=== PATIENT | female | born 1970 | race Caucasian/White ===

== ENCOUNTER 2018-09-20 16:46 | Inpatient (IN) | payer OTHER | END 2018-09-23 14:40 | disposition other institution (70) | LOC: YASAS 16:46 → Y3N 22:46 ==

== ENCOUNTER 2019-01-03 11:02 | Inpatient (IN) | payer OTHER ==
[2019-01-03 11:53] VITALS: BMI 31.8
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
--- NOTE | 2019-01-03 14:03 | PN ---
Teaching Attending Note Name of Resident: Ge Rm ATTENDING PHYSICIAN STATEMENT I saw and evaluated the patient. I reviewed the resident's note and discussed the case with the resident. I agree with the resident's findings and plan as documented. SUBJECTIVE: 48 yo with diabetes, HTN, h/o CVA, no residual deficits, HIV pos ( no meds), here for alcohol and heroin detox. Also uses MJ and cocaine. alcohol 2-4 pints/day heroin $40/day cocaine OBJECTIVE: Vital Signs - 24 hr 01/03/19 11:38 Temperature 98.0 F Pulse Rate 94 H Respiratory 20 Rate Blood Pressure 150/87 tremulous ASSESSMENT AND PLAN: Alcohol and heroin detox protocol
[2019-01-03] MEDS ORDERED: cloNIDine HCL 0.1 MG TABLET PO PRN (14:18)
[2019-01-03] MEDS ORDERED: chlordiazePOXIDE HCL 25 MG CAPSULE PO PRN (14:18)
[2019-01-03] MEDS ORDERED: BISMUTH SUBSALICYLATE 262 MG/15 ML BTL PO PRN (14:18)
[2019-01-03] MEDS ORDERED: MENTHOL/PHENOL 1 EACH UD MM PRN (14:18)
[2019-01-03] MEDS ORDERED: MAG HYDROX/AL HYDROX/SIMETH 30 ML UNIT-DOSE CUP PO PRN (14:18)
[2019-01-03] MEDS ORDERED: ACETAMINOPHEN 325 MG TABLET (FP) PO PRN (14:18)
[2019-01-03] MEDS ORDERED: MAGNESIUM CITRATE 300 ML BOTTLE PO PRN (14:18)
[2019-01-03] MEDS ORDERED: MAGNESIUM HYDROX 2400MG/30ML ORAL SUSPENSION 30 ML CUP PO PRN (14:18)
[2019-01-03] MEDS ORDERED: METHADONE HCL 10 MG TABLET (FOR DETOX USE ONLY) PO ONE (15:18)
[2019-01-03] MEDS: NICOTINE 21 MG/24 HOURS TOPICAL PATCH TD SCH (16:01)
[2019-01-03] MEDS: chlordiazePOXIDE HCL 25 MG CAPSULE PO SCH ×2 (16:44→22:33)
[2019-01-03] MEDS: ACETAMINOPHEN 325 MG TABLET (FP) PO PRN (16:44)
[2019-01-03 18:15] LABS: ALBUMIN 3.8 g/dl (3.4-5.0); BILIRUBIN,TOTAL 0.3 mg/dL (0.2-1); BLOOD UREA NITROGEN 16.6 mg/dL (7-18); CALCIUM 9.6 mg/dL (8.5-10.1); CREATININE 0.8 mg/dL (0.55-1.3); POTASSIUM 3.7 mmol/L (3.5-5.1); TOT PROT 7.4 g/dl (6.4-8.2)
[2019-01-03 18:19] LABS: HEMATOCRIT 35.5 % (32.4-45.2); HEMOGLOBIN 11.8 GM/dL (10.7-15.3); MCH 31.9 pg (25.7-33.7); MCHC 33.4 g/dl (32.0-36.0); MEAN CELL VOLUME 95.6 fl (80-96); MEAN PLT VOLUME 7.7 fl (7.5-11.1); PLATELET COUNT 364 K/MM3 (134-434); RBC 3.71 M/mm3 (3.60-5.2); RDW 15.5 % (11.6-15.6); WHITE BLOOD COUNT 8.1 K/mm3 (4.0-10.0)
[2019-01-03] MEDS: hydrOXYzine PAMOATE 25 MG CAPSULE (FP) PO PRN (21:55)
[2019-01-03] MEDS: THIAMINE HCL 100 MG TABLET (FP) PO SCH (21:56)
[2019-01-03] MEDS: MELATONIN 5 MG TABLETS PO PRN (21:56)
--- NOTE | 2019-01-03 23:31 | PN ---
BHS Progress Note Note: c/o itching in percy-anal and thigh area. Denies burning or pain w/ urination. Hx: DM. Whitish vaginal discharge. No lesions/increased erythema in labial area. Plan: Monistat cream to percy-anal area. Fluconazole tab in am. Vistaril, prn itch. Aveeno soap. BGM Now and BIDAC.
[2019-01-03] MEDS: COLLOIDAL OATMEAL 1 BAR EACH TP PRN (23:41)
[2019-01-04] MEDS: chlordiazePOXIDE HCL 25 MG CAPSULE PO SCH ×4 (05:56→22:22)
[2019-01-04] MEDS: IBUPROFEN 400 MG TABLET (FP) PO PRN ×2 (05:59→16:59)
[2019-01-04] MEDS: METHOCARBAMOL 500 MG TABLET PO PRN ×2 (07:36→16:58)
[2019-01-04] MEDS: hydrOXYzine PAMOATE 25 MG CAPSULE (FP) PO PRN (07:36)
--- NOTE | 2019-01-04 09:28 | PN ---
[facility] CIWA - CIWA Score Nausea/Vomitin-Mild Nausea/No Vomiting Muscle Tremors: 3 Anxiety: 3 Agitation: 2 Paroxysmal Sweats: 2 Orientation: 0-Oriented Tacttile Disturbances: 0-None Auditory Disturbances: 0-None Visual Disturbances: 0-None Headache: 1-Very Mild CIWA-Ar Total Score: 12 S Progress Note (SOAP) Subjective: report hiv since 2004 last ART "4 months" ago last viral load 09/2018 "undetectable" patient requests to start ART while in detox discuss further diagnostic blood testings were required for ART patient verbalize understanding methadone dosage in the process of verification Objective: 01/04/19 09:32 Vital Signs Temperature 97.7 F 01/04/19 09:21 Pulse Rate 67 01/04/19 09:21 Respiratory Rate 18 01/04/19 09:21 Blood Pressure 132/75 01/04/19 09:21 O2 Sat by Pulse Oximetry (%) Laboratory Last Values WBC 8.1 K/mm3 (4.0-10.0) 01/03/19 15:15 RBC 3.71 M/mm3 (3.60-5.2) 01/03/19 15:15 Hgb 11.8 GM/dL (10.7-15.3) 01/03/19 15:15 Hct 35.5 % (32.4-45.2) 01/03/19 15:15 MCV 95.6 fl (80-96) 01/03/19 15:15 MCH 31.9 pg (25.7-33.7) 01/03/19 15:15 MCHC 33.4 g/dl (32.0-36.0) 01/03/19 15:15 RDW 15.5 % (11.6-15.6) D 01/03/19 15:15 Plt Count 364 K/MM3 (134-434) D 01/03/19 15:15 MPV 7.7 fl (7.5-11.1) 01/03/19 15:15 Sodium 141 mmol/L (136-145) 01/03/19 15:15 Potassium 3.7 mmol/L (3.5-5.1) 01/03/19 15:15 Chloride 107 mmol/L (98-107) 01/03/19 15:15 Carbon Dioxide 26 mmol/L (21-32) 01/03/19 15:15 Anion Gap 9 MMOL/L (8-16) 01/03/19 15:15 BUN 16.6 mg/dL (7-18) 01/03/19 15:15 Creatinine 0.8 mg/dL (0.55-1.3) 01/03/19 15:15 Est GFR (CKD-EPI)AfAm 100.33 01/03/19 15:15 Est GFR (CKD-EPI)NonAf 86.57 01/03/19 15:15 POC Glucometer 113 UNITS (80-120) 01/04/19 07:16 Random Glucose 104 mg/dL (74-106) 01/03/19 15:15 Calcium 9.6 mg/dL (8.5-10.1) 01/03/19 15:15 Total Bilirubin 0.3 mg/dL (0.2-1) 01/03/19 15:15 AST 10 U/L (15-37) L 01/03/19 15:15 ALT 12 U/L (13-61) L 01/03/19 15:15 Alkaline Phosphatase 63 U/L (45-117) 01/03/19 15:15 Total Protein 7.4 g/dl (6.4-8.2) 01/03/19 15:15 Albumin 3.8 g/dl (3.4-5.0) 01/03/19 15:15 RPR Titer Nonreactive (NONREACTIVE) 01/03/19 15:15 lab noted Assessment: 01/04/19 09:33 alcohol withdrawal sx Plan: continue librium detox regimen
[2019-01-04] MEDS ORDERED: METHADONE HCL 5 MG TABLET (FOR DETOX USE ONLY) PO ONE (10:00)
[2019-01-04] MEDS ORDERED: FLUCONAZOLE 150 MG TABLET PO ONE (10:00)
[2019-01-04] MEDS: metFORMIN HCL 500 MG TABLET (FP) PO SCH ×2 (10:14→22:22)
[2019-01-04] MEDS: LISINOPRIL 10 MG TABLET (FP) PO SCH ×2 (10:14→22:22)
[2019-01-04] MEDS: PRENATAL VITAMINS W/ FOLIC ACID TABLET (FP) PO SCH (10:14)
[2019-01-04] MEDS: NICOTINE 21 MG/24 HOURS TOPICAL PATCH TD SCH (10:15)
[2019-01-04] MEDS ORDERED: FLUCONAZOLE 50 MG TABLET PO ONE (10:50)
[2019-01-04] MEDS: MICONAZOLE NITRATE 14 GM/TUBE TUBE TP SCH ×2 (10:53→22:21)
--- NOTE | 2019-01-04 10:55 | PN ---
[facility] COWS - Scale Resting Pulse: 0= DC 80 or Below Sweatin= Chills/Flushing Restless Observation: 0= Sits Still Pupil Size: 0= Normal to Room Light Bone or Joint Aches: 1= Mild Discomfort Runny Nose/ Eye Tearin= Nasal Congestion GI Upset > 30mins: 1= Stomach Cramp Tremor Observation of Outstretched Hands: 1= Tremor [place], Not Seen Yawning Observation: 0= None Anxiety or Irritability: 1=Feels Anxious/Irritable Goose Flesh Skin: 0=Smooth Skin COWS Score: 6
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
[2019-01-04] MEDS: QUEtiapine FUMARATE 100 MG TABLET (FP) PO SCH (22:22)
[2019-01-04] MEDS: THIAMINE HCL 100 MG TABLET (FP) PO SCH (22:22)
[2019-01-04] MEDS ORDERED: ALBUTEROL SO4 8 GM HFA INHALER IH PRN (22:30)
--- NOTE | 2019-01-04 22:36 | PN ---
S Progress Note Note: Patient complains of shortness of breath Vital Signs Temperature 98 F 01/04/19 21:51 Pulse Rate 72 01/04/19 21:51 Respiratory Rate 16 01/04/19 21:51 Blood Pressure 111/75 01/04/19 21:51 O2 Sat by Pulse Oximetry (%) Action: Albuterol Sulfate inhaler 2 puff Q4H prn ordered
[2019-01-05] MEDS: chlordiazePOXIDE HCL 25 MG CAPSULE PO SCH ×4 (06:06→22:22)
[2019-01-05] MEDS: IBUPROFEN 400 MG TABLET (FP) PO PRN ×2 (06:07→17:10)
[2019-01-05] MEDS: METHOCARBAMOL 500 MG TABLET PO PRN ×3 (06:07→22:25)
[2019-01-05] MEDS: hydrOXYzine PAMOATE 25 MG CAPSULE (FP) PO PRN (06:08)
[2019-01-05] MEDS ORDERED: METHADONE HCL 10 MG TABLET (FOR DETOX USE ONLY) PO ONE (10:00)
[2019-01-05] MEDS: metFORMIN HCL 500 MG TABLET (FP) PO SCH ×2 (10:24→22:22)
[2019-01-05] MEDS: PRENATAL VITAMINS W/ FOLIC ACID TABLET (FP) PO SCH (10:24)
[2019-01-05] MEDS: MICONAZOLE NITRATE 14 GM/TUBE TUBE TP SCH ×2 (10:24→22:22)
[2019-01-05] MEDS: NICOTINE 21 MG/24 HOURS TOPICAL PATCH TD SCH (10:25)
[2019-01-05] MEDS: ACETAMINOPHEN 325 MG TABLET (FP) PO PRN (10:25)
[2019-01-05] MEDS: LISINOPRIL 10 MG TABLET (FP) PO SCH ×2 (10:29→22:22)
--- NOTE | 2019-01-05 14:09 | PN ---
S CIWA - CIWA Score Nausea/Vomitin-Mild Nausea/No Vomiting Muscle Tremors: 1-None Visible, but [place] Anxiety: 2 Agitation: 2 Paroxysmal Sweats: No Perspiration Orientation: 0-Oriented Tacttile Disturbances: 1-Very Mild Itch/Numbness Auditory Disturbances: 0-None Visual Disturbances: 0-None Headache: 1-Very Mild CIWA-Ar Total Score: 8 BHS Progress Note (SOAP) Subjective: alert,irritable,anxious,pain in the leg,interrupted sleep Objective: 01/05/19 14:08 Vital Signs Temperature 97.0 F L 01/05/19 13:56 Pulse Rate 83 01/05/19 13:56 Respiratory Rate 18 01/05/19 13:56 Blood Pressure 104/64 01/05/19 13:56 O2 Sat by Pulse Oximetry (%) Laboratory Last Values WBC 8.1 K/mm3 (4.0-10.0) 01/03/19 15:15 RBC 3.71 M/mm3 (3.60-5.2) 01/03/19 15:15 Hgb 11.8 GM/dL (10.7-15.3) 01/03/19 15:15 Hct 35.5 % (32.4-45.2) 01/03/19 15:15 MCV 95.6 fl (80-96) 01/03/19 15:15 MCH 31.9 pg (25.7-33.7) 01/03/19 15:15 MCHC 33.4 g/dl (32.0-36.0) 01/03/19 15:15 RDW 15.5 % (11.6-15.6) D 01/03/19 15:15 Plt Count 364 K/MM3 (134-434) D 01/03/19 15:15 MPV 7.7 fl (7.5-11.1) 01/03/19 15:15 Sodium 141 mmol/L (136-145) 01/03/19 15:15 Potassium 3.7 mmol/L (3.5-5.1) 01/03/19 15:15 Chloride 107 mmol/L (98-107) 01/03/19 15:15 Carbon Dioxide 26 mmol/L (21-32) 01/03/19 15:15 Anion Gap 9 MMOL/L (8-16) 01/03/19 15:15 BUN 16.6 mg/dL (7-18) 01/03/19 15:15 Creatinine 0.8 mg/dL (0.55-1.3) 01/03/19 15:15 Est GFR (CKD-EPI)AfAm 100.33 01/03/19 15:15 Est GFR (CKD-EPI)NonAf 86.57 01/03/19 15:15 POC Glucometer 140 UNITS (80-120) 01/05/19 06:11 Random Glucose 104 mg/dL (74-106) 01/03/19 15:15 Calcium 9.6 mg/dL (8.5-10.1) 01/03/19 15:15 Total Bilirubin 0.3 mg/dL (0.2-1) 01/03/19 15:15 AST 10 U/L (15-37) L 01/03/19 15:15 ALT 12 U/L (13-61) L 01/03/19 15:15 Alkaline Phosphatase 63 U/L (45-117) 01/03/19 15:15 Total Protein 7.4 g/dl (6.4-8.2) 01/03/19 15:15 Albumin 3.8 g/dl (3.4-5.0) 01/03/19 15:15 POC Urine HCG, Qual Negative 01/03/19 12:04 RPR Titer Nonreactive (NONREACTIVE) 01/03/19 15:15 Assessment: 01/05/19 14:08 withdrawal symptom Plan: continue detox librium regimen,bgm monitoring
--- NOTE | 2019-01-05 18:45 | PN ---
S Progress Note Note: c/o (L) leg pain at knee and thigh area and numbness in leg and foot.. States pain started a couple of weeks ago. Pain is sharp/throbbing and currently a "8" Ambulates w/ a cane. States used a walker at home. No further vaginal discharge and itch is resolved. O/A: (L) knee slight increased swelling and warmth compared to (R). No increased erythema. Negative Bri's; Pedal pusles +; Cap refil < 3 sec Ibuprofen 600 mg PO Q6H - standing for pain and inflammation. Ice to knee x 20 minutes Q2H, prn.
[2019-01-05] MEDS: IBUPROFEN 600 MG TABLET (FP) PO SCH (19:47)
[2019-01-05] MEDS: THIAMINE HCL 100 MG TABLET (FP) PO SCH (22:21)
[2019-01-05] MEDS: QUEtiapine FUMARATE 100 MG TABLET (FP) PO SCH (22:22)
[2019-01-06] MEDS ORDERED: chlordiazePOXIDE HCL 10 MG CAPSULE PO PRN
[2019-01-06] MEDS: IBUPROFEN 600 MG TABLET (FP) PO SCH ×3 (05:57→18:23)
[2019-01-06] MEDS: chlordiazePOXIDE HCL 10 MG CAPSULE PO SCH ×4 (05:57→22:28)
[2019-01-06] MEDS: METHOCARBAMOL 500 MG TABLET PO PRN ×2 (05:59→17:36)
[2019-01-06] MEDS ORDERED: METHADONE HCL 5 MG TABLET (FOR DETOX USE ONLY) PO ONE (06:00)
[2019-01-06] MEDS: PRENATAL VITAMINS W/ FOLIC ACID TABLET (FP) PO SCH (10:16)
[2019-01-06] MEDS: MICONAZOLE NITRATE 14 GM/TUBE TUBE TP SCH ×2 (10:16→22:33)
[2019-01-06] MEDS: LISINOPRIL 10 MG TABLET (FP) PO SCH ×2 (10:16→22:29)
[2019-01-06] MEDS: NICOTINE 21 MG/24 HOURS TOPICAL PATCH TD SCH (10:18)
[2019-01-06] MEDS: metFORMIN HCL 500 MG TABLET (FP) PO SCH ×2 (10:19→22:28)
--- NOTE | 2019-01-06 14:18 | PN ---
[facility] CIWA - CIWA Score Nausea/Vomitin-No Nausea/No Vomiting Muscle Tremors: 1-None Visible, but [place] Anxiety: 1-Mildly Anxious Agitation: 1-Slight > Activity Paroxysmal Sweats: 1-Minimal Palms Moist Orientation: 0-Oriented Tacttile Disturbances: 0-None Auditory Disturbances: 0-None Visual Disturbances: 0-None Headache: 0-None Present CIWA-Ar Total Score: 4 S Progress Note (SOAP) Subjective: doing well with librium detox regimen ambulating on hallway social with peers in day room last ART 4 months ago strong recommend the patient return to [place] for further testing for ART determination Objective: 01/06/19 14:17 Vital Signs Temperature 96.8 F L 01/06/19 13:12 Pulse Rate 85 01/06/19 13:12 Respiratory Rate 18 01/06/19 13:12 Blood Pressure 116/67 01/06/19 13:12 O2 Sat by Pulse Oximetry (%) Laboratory Last Values WBC 8.1 K/mm3 (4.0-10.0) 01/03/19 15:15 RBC 3.71 M/mm3 (3.60-5.2) 01/03/19 15:15 Hgb 11.8 GM/dL (10.7-15.3) 01/03/19 15:15 Hct 35.5 % (32.4-45.2) 01/03/19 15:15 MCV 95.6 fl (80-96) 01/03/19 15:15 MCH 31.9 pg (25.7-33.7) 01/03/19 15:15 MCHC 33.4 g/dl (32.0-36.0) 01/03/19 15:15 RDW 15.5 % (11.6-15.6) D 01/03/19 15:15 Plt Count 364 K/MM3 (134-434) D 01/03/19 15:15 MPV 7.7 fl (7.5-11.1) 01/03/19 15:15 Sodium 141 mmol/L (136-145) 01/03/19 15:15 Potassium 3.7 mmol/L (3.5-5.1) 01/03/19 15:15 Chloride 107 mmol/L (98-107) 01/03/19 15:15 Carbon Dioxide 26 mmol/L (21-32) 01/03/19 15:15 Anion Gap 9 MMOL/L (8-16) 01/03/19 15:15 BUN 16.6 mg/dL (7-18) 01/03/19 15:15 Creatinine 0.8 mg/dL (0.55-1.3) 01/03/19 15:15 Est GFR (CKD-EPI)AfAm 100.33 01/03/19 15:15 Est GFR (CKD-EPI)NonAf 86.57 01/03/19 15:15 POC Glucometer 120 UNITS (80-120) 01/06/19 05:54 Random Glucose 104 mg/dL (74-106) 01/03/19 15:15 Calcium 9.6 mg/dL (8.5-10.1) 01/03/19 15:15 Total Bilirubin 0.3 mg/dL (0.2-1) 01/03/19 15:15 AST 10 U/L (15-37) L 01/03/19 15:15 ALT 12 U/L (13-61) L 01/03/19 15:15 Alkaline Phosphatase 63 U/L (45-117) 01/03/19 15:15 Total Protein 7.4 g/dl (6.4-8.2) 01/03/19 15:15 Albumin 3.8 g/dl (3.4-5.0) 01/03/19 15:15 POC Urine HCG, Qual Negative 01/03/19 12:04 RPR Titer Nonreactive (NONREACTIVE) 01/03/19 15:15 lab noted Assessment: 01/06/19 14:17 alcohol withdrawal sx Plan: continue librium detox regimen
[2019-01-06] MEDS: COLLOIDAL OATMEAL 1 BAR EACH TP PRN (17:34)
[2019-01-06] MEDS: QUEtiapine FUMARATE 100 MG TABLET (FP) PO SCH (22:28)
[2019-01-06] MEDS: THIAMINE HCL 100 MG TABLET (FP) PO SCH (22:28)
[2019-01-06] MEDS: MELATONIN 5 MG TABLETS PO PRN (22:32)
[2019-01-06] MEDS: ACETAMINOPHEN 325 MG TABLET (FP) PO PRN (22:33)
[2019-01-07] MEDS ORDERED: chlordiazePOXIDE HCL 10 MG CAPSULE PO SCH (05:00)
[2019-01-07] MEDS: METHOCARBAMOL 500 MG TABLET PO PRN ×2 (05:42→12:57)
[2019-01-07] MEDS: IBUPROFEN 600 MG TABLET (FP) PO SCH (08:12)
[2019-01-07] MEDS: COLLOIDAL OATMEAL 1 BAR EACH TP PRN (09:10)
[2019-01-07] MEDS: MICONAZOLE NITRATE 14 GM/TUBE TUBE TP SCH (09:12)
[2019-01-07] MEDS: PRENATAL VITAMINS W/ FOLIC ACID TABLET (FP) PO SCH (09:13)
[2019-01-07] MEDS: LISINOPRIL 10 MG TABLET (FP) PO SCH (09:13)
[2019-01-07] MEDS: NICOTINE 21 MG/24 HOURS TOPICAL PATCH TD SCH (09:14)
[2019-01-07] MEDS: metFORMIN HCL 500 MG TABLET (FP) PO SCH (09:16)
[2019-01-07 09:27] VITALS: BP 112/72; PULSE 81; TEMP 98.7
[2019-01-07] MEDS: ACETAMINOPHEN 325 MG TABLET (FP) PO PRN (12:57)
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
[2019-01-08] MEDS ORDERED: chlordiazePOXIDE HCL 10 MG CAPSULE PO ONE (05:00)
== END 2019-01-07 14:50 | disposition home or self-care (01) | DRG 773 ==
LOC: YASAS 11:02 → Y3N 14:55
PROVIDERS: ADMIT Surgery; ATTEND Surgery
PROC: HZ2ZZZZ Detoxification Services for Substance Abuse Treatment (ICD-10-PCS; principal; 2019-01-03)
DX: F11.23 Opioid dependence with withdrawal (principal); F10.230 Alcohol dependence with withdrawal, uncomplicated; F14.20 Cocaine dependence, uncomplicated; F12.20 Cannabis dependence, uncomplicated; F17.210 Nicotine dependence, cigarettes, uncomplicated; F19.24 Other psychoactive substance dependence with psychoactive substance-induced mood disorder; F41.9 Anxiety disorder, unspecified; F31.9 Bipolar disorder, unspecified; I10 Essential (primary) hypertension; G47.00 Insomnia, unspecified; J45.909 Unspecified asthma, uncomplicated; E11.42 Type 2 diabetes mellitus with diabetic polyneuropathy; Z79.84 Long term (current) use of oral hypoglycemic drugs; E78.00 Pure hypercholesterolemia, unspecified; M79.605 Pain in left leg; R01.1 Cardiac murmur, unspecified; Z21 Asymptomatic human immunodeficiency virus [HIV] infection status; N89.8 Other specified noninflammatory disorders of vagina; Z86.73 Personal history of transient ischemic attack (TIA), and cerebral infarction without residual deficits; Z91.19 Patient's noncompliance with other medical treatment and regimen; Z91.011 Allergy to milk products; Z86.19 Personal history of other infectious and parasitic diseases
CPT/HCPCS: 36415; 80053; 81025; 82962; 85027; 86593; J0735

== ENCOUNTER 2019-04-12 15:41 | Inpatient (IN) | payer OTHER ==
[2019-04-12 17:37] VITALS: BMI 34.8
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
[2019-04-12] MEDS ORDERED: hydrOXYzine PAMOATE 25 MG CAPSULE (FP) PO PRN (19:44)
[2019-04-12] MEDS ORDERED: chlordiazePOXIDE HCL 25 MG CAPSULE PO ONE (19:44)
[2019-04-12] MEDS ORDERED: BISMUTH SUBSALICYLATE 524 MG/30 ML UD PO PRN (19:44)
[2019-04-12] MEDS ORDERED: MAGNESIUM CITRATE 300 ML BOTTLE PO PRN (19:44)
[2019-04-12] MEDS ORDERED: NICOTINE POLACRILEX 2 MG GUM BUC PRN (19:44)
[2019-04-12] MEDS ORDERED: ACETAMINOPHEN 325 MG TABLET (FP) PO PRN (19:44)
[2019-04-12] MEDS ORDERED: MAGNESIUM HYDROX 2400MG/30ML ORAL SUSPENSION 30 ML CUP PO PRN (19:44)
[2019-04-12] MEDS ORDERED: guaiFENesin 200 MG/10 ML 10 ML UNIT-DOSE CUPS PO PRN (19:44)
[2019-04-12] MEDS ORDERED: chlordiazePOXIDE HCL 25 MG CAPSULE PO PRN (19:44)
[2019-04-12] MEDS ORDERED: MAG HYDROX/AL HYDROX/SIMETH 30 ML UNIT-DOSE CUP PO PRN (19:44)
[2019-04-12] MEDS ORDERED: MENTHOL/PHENOL 1 EACH UD MM PRN (19:44)
[2019-04-12] MEDS ORDERED: ALBUTEROL SO4 8 GM HFA INHALER IH PRN (19:46)
[2019-04-12] MEDS: ONDANSETRON *ODT* 4 MG TABLET SL PRN (20:40)
[2019-04-12] MEDS: ACETAMINOPHEN 325 MG TABLET (FP) PO PRN (20:57)
[2019-04-12] MEDS: LISINOPRIL 10 MG TABLET (FP) PO SCH (20:59)
[2019-04-12] MEDS: THIAMINE HCL 100 MG TABLET (FP) PO SCH (20:59)
[2019-04-12] MEDS: BUPRENORPHINE/NALOXONE 8 MG/2 MG FILM PACKET SL SCH (21:00)
[2019-04-12] MEDS ORDERED: QUEtiapine FUMARATE 100 MG TABLET (FP) PO SCH (22:00)
[2019-04-12] MEDS: IBUPROFEN 400 MG TABLET (FP) PO PRN (22:22)
[2019-04-12] MEDS: MELATONIN 5 MG TABLETS PO PRN (22:23)
[2019-04-12] MEDS: chlordiazePOXIDE HCL 25 MG CAPSULE PO SCH (23:15)
[2019-04-13] MEDS: METHOCARBAMOL 500 MG TABLET PO PRN ×2 (03:21→14:58)
[2019-04-13] MEDS: chlordiazePOXIDE HCL 25 MG CAPSULE PO SCH ×4 (05:56→22:23)
[2019-04-13] MEDS: BUPRENORPHINE/NALOXONE 8 MG/2 MG FILM PACKET SL SCH (10:04)
[2019-04-13] MEDS: ELVITEG/COB/EMTRI/TENOF (GENVOYA) TABLET (NF) PO SCH (10:04)
[2019-04-13] MEDS: LISINOPRIL 10 MG TABLET (FP) PO SCH ×2 (10:04→22:22)
[2019-04-13] MEDS: PRENATAL VITAMINS W/ FOLIC ACID TABLET (FP) PO SCH (10:04)
[2019-04-13] MEDS: NICOTINE 21 MG/24 HOURS TOPICAL PATCH TD SCH (10:05)
[2019-04-13] MEDS: IBUPROFEN 400 MG TABLET (FP) PO PRN ×2 (10:06→17:31)
[2019-04-13 10:24] LABS: HEMATOCRIT 36.7 % (32.4-45.2); HEMOGLOBIN 12.5 GM/dL (10.7-15.3); MCH 33.4 pg (25.7-33.7); MEAN CELL VOLUME 98.4 fl (80-96); MEAN PLT VOLUME 7.6 fl (7.5-11.1); PLATELET COUNT 350 K/MM3 (134-434); RBC 3.73 M/mm3 (3.60-5.2); RDW 14.6 % (11.6-15.6)
[2019-04-13 11:01] LABS: BILIRUBIN,TOTAL 0.2 mg/dL (0.2-1); BLOOD UREA NITROGEN 22.7 mg/dL (7-18); CALCIUM 9.5 mg/dL (8.5-10.1); CREATININE 1.7 mg/dL (0.55-1.3); POTASSIUM 3.5 mmol/L (3.5-5.1)
[2019-04-13] MEDS: METHYL SALICYLATE/MENTHOL OINT 30 GM TUBE TP PRN (11:41)
[2019-04-13] MEDS ORDERED: TRIMETHOBENZAMIDE HCL 200MG/2ML INJ IM ONE (11:45)
--- NOTE | 2019-04-13 13:38 | PN ---
S CIWA - CIWA Score Nausea/Vomitin-Mild Nausea/No Vomiting Muscle Tremors: 4-Moderate,w/Arms Extend Anxiety: 3 Agitation: 2 Paroxysmal Sweats: 2 Orientation: 0-Oriented Tacttile Disturbances: 0-None Auditory Disturbances: 0-None Visual Disturbances: 0-None Headache: 1-Very Mild CIWA-Ar Total Score: 13 S Progress Note (SOAP) Subjective: 49 years old female admitted on 04/12/19 for alcohol withdrawal sx management treating with librium detox regimen received suboxone 8-2mg po today as per admission physician suboxone maintenance dose doing ok today discuss aftercare with counselor but prefers to stay in bed today Objective: 04/13/19 13:40 Vital Signs Temperature 96.2 F L 04/13/19 13:22 Pulse Rate 83 04/13/19 13:22 Respiratory Rate 18 04/13/19 13:22 Blood Pressure 105/68 04/13/19 13:22 O2 Sat by Pulse Oximetry (%) Laboratory Last Values WBC 13.0 K/mm3 (4.0-10.0) H 04/13/19 07:40 RBC 3.73 M/mm3 (3.60-5.2) 04/13/19 07:40 Hgb 12.5 GM/dL (10.7-15.3) 04/13/19 07:40 Hct 36.7 % (32.4-45.2) 04/13/19 07:40 MCV 98.4 fl (80-96) H 04/13/19 07:40 MCH 33.4 pg (25.7-33.7) 04/13/19 07:40 MCHC 34.0 g/dl (32.0-36.0) 04/13/19 07:40 RDW 14.6 % (11.6-15.6) 04/13/19 07:40 Plt Count 350 K/MM3 (134-434) 04/13/19 07:40 MPV 7.6 fl (7.5-11.1) 04/13/19 07:40 Sodium 138 mmol/L (136-145) 04/13/19 07:40 Potassium 3.5 mmol/L (3.5-5.1) 04/13/19 07:40 Chloride 106 mmol/L (98-107) 04/13/19 07:40 Carbon Dioxide 21 mmol/L (21-32) 04/13/19 07:40 Anion Gap 12 MMOL/L (8-16) 04/13/19 07:40 BUN 22.7 mg/dL (7-18) H 04/13/19 07:40 Creatinine 1.7 mg/dL (0.55-1.3) H 04/13/19 07:40 Est GFR (CKD-EPI)AfAm 40.05 04/13/19 07:40 Est GFR (CKD-EPI)NonAf 34.56 04/13/19 07:40 Random Glucose 80 mg/dL (74-106) 04/13/19 07:40 Calcium 9.5 mg/dL (8.5-10.1) 04/13/19 07:40 Total Bilirubin 0.2 mg/dL (0.2-1) 04/13/19 07:40 AST 11 U/L (15-37) L 04/13/19 07:40 ALT 17 U/L (13-61) 04/13/19 07:40 Alkaline Phosphatase 64 U/L (45-117) 04/13/19 07:40 Total Protein 8.0 g/dl (6.4-8.2) 04/13/19 07:40 Albumin 4.0 g/dl (3.4-5.0) 04/13/19 07:40 RPR Titer Nonreactive (NONREACTIVE) 04/13/19 07:40 lab noted wbc elevation bun and creatinine elevation encourage oral fluid Assessment: 04/13/19 13:41 alcohol withdrawal Plan: librium regimen
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
[2019-04-13] MEDS: ONDANSETRON *ODT* 4 MG TABLET SL PRN (15:38)
--- NOTE | 2019-04-13 19:24 | PN ---
[facility] Progress Note Note: Patient states (L) knee gave out and she fell. Denies hitting head. C/ migraine headache. C/o chronic bilateral knee pain (L) >(R). States gait is unsteady and uses a walker at home. Did not bring walker to [facility]. Knees w/o increased erythema, warmth or tenderness upon palpation. ROM equal in both knees. No calf tenderness upon palpation. Negative Bri's. No pedal edema. Pedal pulses (+). Gait unsteady. YAZAN. No head abrasions, swelling, or tenderness. Pulse Ox: 97 %. EKG: NSR/Normal BGM: 91 (post prandial) Vital Signs 04/13/19 04/13/19 04/13/19 13:22 17:01 19:00 Temperature 96.2 F L 97.4 F L 96.4 F L Pulse Rate 83 90 86 Respiratory 18 16 18 Rate Blood Pressure 105/68 96/59 L 93/53 L Plan: Video reviewed and patient walking w/o a cane, appeared to stumble and back slid against hallway wall then slid down against the wall. Patient did not hit head or land on knees. Fall Protocol 2. Encourage fluids. Encouraged to avoid fast pace. Encouraged to notify staff if feels dizzy. Review medication list. States on metformin at home. Not currently prescribed. Will hold but monitor BGM BID. Discussed this plan w/ the patient. Vistaril d/c'd. Patient on Lisinopril 10 mg PO BID. Will place hold parameters for SBP < 110. Cane ordered.
[2019-04-13] MEDS ORDERED: QUEtiapine FUMARATE 100 MG TABLET (FP) PO SCH (22:00)
[2019-04-13] MEDS: THIAMINE HCL 100 MG TABLET (FP) PO SCH (22:20)
[2019-04-13] MEDS: ACETAMINOPHEN 325 MG TABLET (FP) PO PRN (22:24)
[2019-04-14] MEDS: IBUPROFEN 400 MG TABLET (FP) PO PRN ×3 (02:41→20:38)
[2019-04-14] MEDS: chlordiazePOXIDE HCL 25 MG CAPSULE PO SCH ×4 (05:45→23:12)
[2019-04-14] MEDS: LISINOPRIL 10 MG TABLET (FP) PO SCH (09:42)
[2019-04-14] MEDS: NICOTINE 21 MG/24 HOURS TOPICAL PATCH TD SCH (09:48)
[2019-04-14] MEDS: PRENATAL VITAMINS W/ FOLIC ACID TABLET (FP) PO SCH (09:48)
[2019-04-14] MEDS: ELVITEG/COB/EMTRI/TENOF (GENVOYA) TABLET (NF) PO SCH (11:09)
[2019-04-14] MEDS: BUPRENORPHINE/NALOXONE 8 MG/2 MG FILM PACKET SL SCH (11:30)
--- NOTE | 2019-04-14 12:07 | PN ---
[facility] CIWA - CIWA Score Nausea/Vomitin-Mild Nausea/No Vomiting Muscle Tremors: 2 Anxiety: 3 Agitation: 2 Paroxysmal Sweats: 2 Orientation: 0-Oriented Tacttile Disturbances: 0-None Auditory Disturbances: 0-None Visual Disturbances: 0-None Headache: 0-None Present CIWA-Ar Total Score: 10 S Progress Note (SOAP) Subjective: 49 years old female admitted on 04/12/19 for alcohol withdrawal sx management treating with librium detox regimen slip and fall on 04/13/19 early evening due to left knee "gave up" order cane for ambulation strong recommend the patient use cane when ambulating medication reviewed hold seroquel 200 mg po hs psychiatric referral discontinue lisinopril modified librium regimen suitable for patient current condition Objective: 04/14/19 12:07 Vital Signs Temperature 97.6 F 04/14/19 11:23 Pulse Rate 96 H 04/14/19 11:23 Respiratory Rate 18 04/14/19 11:23 Blood Pressure 86/55 L 04/14/19 11:23 O2 Sat by Pulse Oximetry (%) Laboratory Last Values WBC 13.0 K/mm3 (4.0-10.0) H 04/13/19 07:40 RBC 3.73 M/mm3 (3.60-5.2) 04/13/19 07:40 Hgb 12.5 GM/dL (10.7-15.3) 04/13/19 07:40 Hct 36.7 % (32.4-45.2) 04/13/19 07:40 MCV 98.4 fl (80-96) H 04/13/19 07:40 MCH 33.4 pg (25.7-33.7) 04/13/19 07:40 MCHC 34.0 g/dl (32.0-36.0) 04/13/19 07:40 RDW 14.6 % (11.6-15.6) 04/13/19 07:40 Plt Count 350 K/MM3 (134-434) 04/13/19 07:40 MPV 7.6 fl (7.5-11.1) 04/13/19 07:40 Sodium 138 mmol/L (136-145) 04/13/19 07:40 Potassium 3.5 mmol/L (3.5-5.1) 04/13/19 07:40 Chloride 106 mmol/L (98-107) 04/13/19 07:40 Carbon Dioxide 21 mmol/L (21-32) 04/13/19 07:40 Anion Gap 12 MMOL/L (8-16) 04/13/19 07:40 BUN 22.7 mg/dL (7-18) H 04/13/19 07:40 Creatinine 1.7 mg/dL (0.55-1.3) H 04/13/19 07:40 Est GFR (CKD-EPI)AfAm 40.05 04/13/19 07:40 Est GFR (CKD-EPI)NonAf 34.56 04/13/19 07:40 POC Glucometer 133 UNITS (80-120) 04/14/19 05:50 Random Glucose 80 mg/dL (74-106) 04/13/19 07:40 Calcium 9.5 mg/dL (8.5-10.1) 04/13/19 07:40 Total Bilirubin 0.2 mg/dL (0.2-1) 04/13/19 07:40 AST 11 U/L (15-37) L 04/13/19 07:40 ALT 17 U/L (13-61) 04/13/19 07:40 Alkaline Phosphatase 64 U/L (45-117) 04/13/19 07:40 Total Protein 8.0 g/dl (6.4-8.2) 04/13/19 07:40 Albumin 4.0 g/dl (3.4-5.0) 04/13/19 07:40 RPR Titer Nonreactive (NONREACTIVE) 04/13/19 07:40 lab noted Assessment: 04/14/19 12:08 alcohol withdrawal Plan: modified librium regimen
--- NOTE | 2019-04-14 12:42 | PN ---
[facility] Progress Note Note: Psychiatric nurse practitioner note: As per TYLER Matthews, patient had a fall yesterday at approximately 7pm. Patient then received her seroquel 200mg evening dose (10pm). This morning patient appeared sedated, drowsy, and fatigue. Patient's blood pressure was 86/55 HR 96 RR 18. Will discontinue seroquel 200mg HS. Patient not to be given seroquel tonight. Will reorder Seroquel 100mg for 04/15/18.
[2019-04-14] MEDS: ACETAMINOPHEN 325 MG TABLET (FP) PO PRN (15:36)
[2019-04-14] MEDS: THIAMINE HCL 100 MG TABLET (FP) PO SCH (23:12)
[2019-04-14] MEDS: MELATONIN 5 MG TABLETS PO PRN (23:13)
[2019-04-15] MEDS ORDERED: chlordiazePOXIDE HCL 10 MG CAPSULE PO PRN
[2019-04-15] MEDS ORDERED: chlordiazePOXIDE HCL 10 MG CAPSULE PO SCH (05:00)
[2019-04-15] MEDS: chlordiazePOXIDE 5 MG CAPSULE PO SCH ×4 (05:57→22:54)
[2019-04-15] MEDS: IBUPROFEN 400 MG TABLET (FP) PO PRN ×3 (06:47→22:55)
[2019-04-15] MEDS: PRENATAL VITAMINS W/ FOLIC ACID TABLET (FP) PO SCH (10:39)
[2019-04-15] MEDS: NICOTINE 21 MG/24 HOURS TOPICAL PATCH TD SCH (10:39)
[2019-04-15] MEDS: BUPRENORPHINE/NALOXONE 8 MG/2 MG FILM PACKET SL SCH (10:40)
[2019-04-15] MEDS: ELVITEG/COB/EMTRI/TENOF (GENVOYA) TABLET (NF) PO SCH (10:41)
[2019-04-15] MEDS ORDERED: PANTOPRAZOLE 40 MG TABLET (FP) PO SCH (11:15)
--- NOTE | 2019-04-15 12:43 | PN ---
S CIWA - CIWA Score Nausea/Vomitin-No Nausea/No Vomiting Muscle Tremors: None Anxiety: 3 Agitation: 0-Normal Activity Paroxysmal Sweats: 3 Orientation: 0-Oriented Tacttile Disturbances: 0-None Auditory Disturbances: 0-None Visual Disturbances: 0-None Headache: 2-Mild CIWA-Ar Total Score: 8 BHS Progress Note (SOAP) Subjective: c/o sweats, chills, headache, and anxiety. Objective: 04/15/19 12:43 Vital Signs 04/15/19 04/15/19 06:36 09:18 Temperature 98.3 F 97.6 F Pulse Rate 78 97 H Respiratory 18 16 Rate Blood Pressure 96/52 L 83/55 L Laboratory Last Values WBC 13.0 K/mm3 (4.0-10.0) H 04/13/19 07:40 RBC 3.73 M/mm3 (3.60-5.2) 04/13/19 07:40 Hgb 12.5 GM/dL (10.7-15.3) 04/13/19 07:40 Hct 36.7 % (32.4-45.2) 04/13/19 07:40 MCV 98.4 fl (80-96) H 04/13/19 07:40 MCH 33.4 pg (25.7-33.7) 04/13/19 07:40 MCHC 34.0 g/dl (32.0-36.0) 04/13/19 07:40 RDW 14.6 % (11.6-15.6) 04/13/19 07:40 Plt Count 350 K/MM3 (134-434) 04/13/19 07:40 MPV 7.6 fl (7.5-11.1) 04/13/19 07:40 Sodium 138 mmol/L (136-145) 04/13/19 07:40 Potassium 3.5 mmol/L (3.5-5.1) 04/13/19 07:40 Chloride 106 mmol/L (98-107) 04/13/19 07:40 Carbon Dioxide 21 mmol/L (21-32) 04/13/19 07:40 Anion Gap 12 MMOL/L (8-16) 04/13/19 07:40 BUN 22.7 mg/dL (7-18) H 04/13/19 07:40 Creatinine 1.7 mg/dL (0.55-1.3) H 04/13/19 07:40 Est GFR (CKD-EPI)AfAm 40.05 04/13/19 07:40 Est GFR (CKD-EPI)NonAf 34.56 04/13/19 07:40 POC Glucometer 139 UNITS (80-120) 04/15/19 06:07 Random Glucose 80 mg/dL (74-106) 04/13/19 07:40 Calcium 9.5 mg/dL (8.5-10.1) 04/13/19 07:40 Total Bilirubin 0.2 mg/dL (0.2-1) 04/13/19 07:40 AST 11 U/L (15-37) L 04/13/19 07:40 ALT 17 U/L (13-61) 04/13/19 07:40 Alkaline Phosphatase 64 U/L (45-117) 04/13/19 07:40 Total Protein 8.0 g/dl (6.4-8.2) 04/13/19 07:40 Albumin 4.0 g/dl (3.4-5.0) 04/13/19 07:40 POC Urine HCG, Qual Negative 04/12/19 17:57 RPR Titer Nonreactive (NONREACTIVE) 04/13/19 07:40 Labs noted. Assessment: 04/15/19 12:43 AOX3, in no acute respiratory distress. Full ROM, ambulating in the unit. Withdrawal symptoms. Plan: continue detox.
--- NOTE | 2019-04-15 13:27 | EKG ---
Test Reason : Blood Pressure : / mmHG Vent. Rate : 081 BPM Atrial Rate : 081 BPM P-R Int : 142 ms QRS Dur : 070 ms QT Int : 376 ms P-R-T Axes : 043 023 038 degrees QTc Int : 436 ms NORMAL SINUS RHYTHM NORMAL ECG WHEN COMPARED WITH ECG OF 23-SEP-2018 10:36, NO SIGNIFICANT CHANGE WAS FOUND Confirmed by NAILA CORDERO MD ([id number]) on 04/15/2019 1:26:53 PM Referred By: PAULA [facility] Confirmed By:NAILA CORDERO MD
[2019-04-15] MEDS: ACETAMINOPHEN 325 MG TABLET (FP) PO PRN (17:22)
[2019-04-15] MEDS: QUEtiapine FUMARATE 100 MG TABLET (FP) PO SCH (22:54)
[2019-04-15] MEDS: THIAMINE HCL 100 MG TABLET (FP) PO SCH (22:54)
[2019-04-16] MEDS ORDERED: chlordiazePOXIDE HCL 10 MG CAPSULE PO SCH (05:00)
[2019-04-16] MEDS: IBUPROFEN 400 MG TABLET (FP) PO PRN ×2 (05:44→17:22)
[2019-04-16] MEDS: chlordiazePOXIDE 5 MG CAPSULE PO SCH ×2 (05:44→17:21)
[2019-04-16] MEDS: ELVITEG/COB/EMTRI/TENOF (GENVOYA) TABLET (NF) PO SCH (07:12)
[2019-04-16] MEDS: BUPRENORPHINE/NALOXONE 8 MG/2 MG FILM PACKET SL SCH (10:31)
[2019-04-16] MEDS: PRENATAL VITAMINS W/ FOLIC ACID TABLET (FP) PO SCH (10:31)
[2019-04-16] MEDS: NICOTINE 21 MG/24 HOURS TOPICAL PATCH TD SCH (10:32)
--- NOTE | 2019-04-16 12:21 | PN ---
S CIWA - CIWA Score Nausea/Vomitin-No Nausea/No Vomiting Muscle Tremors: None Anxiety: 2 Agitation: 0-Normal Activity Paroxysmal Sweats: 2 Orientation: 0-Oriented Tacttile Disturbances: 0-None Auditory Disturbances: 0-None Visual Disturbances: 0-None Headache: 1-Very Mild CIWA-Ar Total Score: 5 BHS Progress Note (SOAP) Subjective: c/o mild withdrawal symptoms. Objective: 04/16/19 12:20 Vital Signs 04/16/19 04/16/19 06:28 09:18 Temperature 97.8 F 97.4 F L Pulse Rate 93 H 90 Respiratory 18 18 Rate Blood Pressure 123/79 101/67 Lab Results WBC 13.0 K/mm3 (4.0-10.0) H 04/13/19 07:40 RBC 3.73 M/mm3 (3.60-5.2) 04/13/19 07:40 Hgb 12.5 GM/dL (10.7-15.3) 04/13/19 07:40 Hct 36.7 % (32.4-45.2) 04/13/19 07:40 MCV 98.4 fl (80-96) H 04/13/19 07:40 MCHC 34.0 g/dl (32.0-36.0) 04/13/19 07:40 RDW 14.6 % (11.6-15.6) 04/13/19 07:40 Plt Count 350 K/MM3 (134-434) 04/13/19 07:40 Sodium 138 mmol/L (136-145) 04/13/19 07:40 Potassium 3.5 mmol/L (3.5-5.1) 04/13/19 07:40 Chloride 106 mmol/L (98-107) 04/13/19 07:40 Carbon Dioxide 21 mmol/L (21-32) 04/13/19 07:40 Anion Gap 12 MMOL/L (8-16) 04/13/19 07:40 BUN 22.7 mg/dL (7-18) H 04/13/19 07:40 Creatinine 1.7 mg/dL (0.55-1.3) H 04/13/19 07:40 Random Glucose 80 mg/dL (74-106) 04/13/19 07:40 Calcium 9.5 mg/dL (8.5-10.1) 04/13/19 07:40 Labs noted. Assessment: 04/16/19 12:20 AOX3, in no acute respiratory distress. Full ROM, ambulating in the unit. Mild Withdrawal symptoms. For d/c tomorrow. Plan: continue detox. D/C in AM.
[2019-04-16] MEDS: METHYL SALICYLATE/MENTHOL OINT 30 GM TUBE TP PRN (17:24)
[2019-04-16] MEDS: THIAMINE HCL 100 MG TABLET (FP) PO SCH (22:18)
[2019-04-16] MEDS: QUEtiapine FUMARATE 100 MG TABLET (FP) PO SCH (22:18)
[2019-04-17] MEDS ORDERED: chlordiazePOXIDE HCL 10 MG CAPSULE PO ONE (05:00)
[2019-04-17] MEDS ORDERED: chlordiazePOXIDE 5 MG CAPSULE PO ONE (05:00)
[2019-04-17] MEDS: ELVITEG/COB/EMTRI/TENOF (GENVOYA) TABLET (NF) PO SCH (07:53)
[2019-04-17] MEDS: PRENATAL VITAMINS W/ FOLIC ACID TABLET (FP) PO SCH (11:35)
[2019-04-17] MEDS: NICOTINE 21 MG/24 HOURS TOPICAL PATCH TD SCH (11:35)
[2019-04-17] MEDS: BUPRENORPHINE/NALOXONE 8 MG/2 MG FILM PACKET SL SCH (11:35)
[2019-04-17] MEDS: METHOCARBAMOL 500 MG TABLET PO PRN (11:35)
[2019-04-17] MEDS: IBUPROFEN 400 MG TABLET (FP) PO PRN (11:35)
[2019-04-17 13:15] VITALS: BP 122/81; PULSE 96; TEMP 98.5
--- NOTE | 2019-04-17 15:01 | DS ---
[facility] Detox Discharge Summary Admission Date: 04/12/19 Discharge Date: 04/17/19 - History Present History: Alcohol Dependence Additional Comments: 49 years old female admitted on 04/12/10 for alcohol withdrawal sx management treated with librium detox regimen patient tolerated well alert oriented x 3 cardiac s1s2 regular rate rhythm respiratory clear lungs bilaterally on auscultation ambulating with cane steady gait - Physical Exam Results Vital Signs: Vital Signs Temperature 98.5 F 04/17/19 13:14 Pulse Rate 96 H 04/17/19 13:14 Respiratory Rate 16 04/17/19 13:14 Blood Pressure 122/81 04/17/19 13:14 O2 Sat by Pulse Oximetry (%) Pertinent Admission Physical Exam Findings: alcohol withdrawal Vital Signs Temperature 98.5 F 04/17/19 13:14 Pulse Rate 96 H 04/17/19 13:14 Respiratory Rate 16 04/17/19 13:14 Blood Pressure 122/81 04/17/19 13:14 O2 Sat by Pulse Oximetry (%) Laboratory Last Values WBC 13.0 K/mm3 (4.0-10.0) H 04/13/19 07:40 RBC 3.73 M/mm3 (3.60-5.2) 04/13/19 07:40 Hgb 12.5 GM/dL (10.7-15.3) 04/13/19 07:40 Hct 36.7 % (32.4-45.2) 04/13/19 07:40 MCV 98.4 fl (80-96) H 04/13/19 07:40 MCH 33.4 pg (25.7-33.7) 04/13/19 07:40 MCHC 34.0 g/dl (32.0-36.0) 04/13/19 07:40 RDW 14.6 % (11.6-15.6) 04/13/19 07:40 Plt Count 350 K/MM3 (134-434) 04/13/19 07:40 MPV 7.6 fl (7.5-11.1) 04/13/19 07:40 Sodium 138 mmol/L (136-145) 04/13/19 07:40 Potassium 3.5 mmol/L (3.5-5.1) 04/13/19 07:40 Chloride 106 mmol/L (98-107) 04/13/19 07:40 Carbon Dioxide 21 mmol/L (21-32) 04/13/19 07:40 Anion Gap 12 MMOL/L (8-16) 04/13/19 07:40 BUN 22.7 mg/dL (7-18) H 04/13/19 07:40 Creatinine 1.7 mg/dL (0.55-1.3) H 04/13/19 07:40 Est GFR (CKD-EPI)AfAm 40.05 04/13/19 07:40 Est GFR (CKD-EPI)NonAf 34.56 04/13/19 07:40 POC Glucometer 129 UNITS (80-120) 04/17/19 05:50 Random Glucose 80 mg/dL (74-106) 04/13/19 07:40 Calcium 9.5 mg/dL (8.5-10.1) 04/13/19 07:40 Total Bilirubin 0.2 mg/dL (0.2-1) 04/13/19 07:40 AST 11 U/L (15-37) L 04/13/19 07:40 ALT 17 U/L (13-61) 04/13/19 07:40 Alkaline Phosphatase 64 U/L (45-117) 04/13/19 07:40 Total Protein 8.0 g/dl (6.4-8.2) 04/13/19 07:40 Albumin 4.0 g/dl (3.4-5.0) 04/13/19 07:40 POC Urine HCG, Qual Negative 04/12/19 17:57 RPR Titer Nonreactive (NONREACTIVE) 04/13/19 07:40 lab noted - Treatment Hospital Course: Detox Protocol Followed, Detoxed Safely, Responded well, Discharged Condition Good, Rehab Referral Accepted Patient has [facility]ed [facility] - Medication Discharge Medications: Ambulatory Orders Venlafaxine HCl ER [Effexor Xr -] 75 mg PO BID 06/08/13 Doxepin HCl [Sinequan -] 100 mg PO HS 09/20/18 Elviteg/Cob/Emtri/Tenof Alafen [Genvoya Tablet] 1 each PO DAILY 30 Days #30 tablet 09/23/18 Lisinopril [Prinivil] 10 mg PO BID 30 Days #60 tablet 09/23/18 metFORMIN HCL [Glucophage -] 500 mg PO BID 30 Days #60 tablet 09/23/18 Albuterol Sulfate Inhaler - [Ventolin Hfa Inhaler -] 1 - 2 inh PO PRN PRN Buprenorphine HCl/Naloxone HCl [Buprenorp-Nalox 8-2 mg Sl Film] 1 each SL DAILY 04/17/19 - Diagnosis (1) Encounter for monitoring Suboxone maintenance therapy Status: Chronic (2) DM (diabetes mellitus), type 2 Status: Chronic Qualifiers: Diabetes mellitus fpc insulin use: without fpc use Diabetes mellitus complication status: with other specified complication Qualified Code (s): E11.69 - Type 2 diabetes mellitus with other specified complication (3) Substance induced mood disorder Status: Suspected (4) Asthma Status: Chronic Qualifiers: Asthma severity: mild Asthma persistence: intermittent Asthma complication type: uncomplicated Qualified Code(s): J45.20 - Mild intermittent asthma, uncomplicated (5) Essential hypertension Status: Chronic (6) Human immunodeficiency virus infection Status: Chronic Qualifiers: HIV symptom status: asymptomatic Qualified Code(s): Z21 - Asymptomatic human immunodeficiency virus [HIV] infection status (7) Hyperlipidemia Status: Chronic Qualifiers: Hyperlipidemia type: unspecified Qualified Code(s): E78.5 - Hyperlipidemia , unspecified - AMA Did Patient Leave Against Medical Advice: No CIWA Score - CIWA Score Nausea/Vomitin-No Nausea/No Vomiting Muscle Tremors: None Anxiety: 1-Mildly Anxious Agitation: 0-Normal Activity Paroxysmal Sweats: 1-Minimal Palms Moist Orientation: 0-Oriented Tacttile Disturbances: 0-None Auditory Disturbances: 0-None Visual Disturbances: 0-None Headache: 0-None Present CIWA-Ar Total Score: 2
== END 2019-04-17 15:04 | disposition other institution (70) | DRG 773 ==
LOC: YASAS 15:41 → Y3N 19:59
PROVIDERS: ADMIT Allergy & Immunology; ATTEND Allergy & Immunology
PROC: HZ2ZZZZ Detoxification Services for Substance Abuse Treatment (ICD-10-PCS; principal; 2019-04-12)
DX: F10.230 Alcohol dependence with withdrawal, uncomplicated (principal); F11.20 Opioid dependence, uncomplicated; F14.20 Cocaine dependence, uncomplicated; F12.20 Cannabis dependence, uncomplicated; F17.210 Nicotine dependence, cigarettes, uncomplicated; F41.9 Anxiety disorder, unspecified; F32.9 Major depressive disorder, single episode, unspecified; F19.24 Other psychoactive substance dependence with psychoactive substance-induced mood disorder; F19.282 Other psychoactive substance dependence with psychoactive substance-induced sleep disorder; I10 Essential (primary) hypertension; E11.69 Type 2 diabetes mellitus with other specified complication; Z21 Asymptomatic human immunodeficiency virus [HIV] infection status; E78.5 Hyperlipidemia, unspecified; M25.561 Pain in right knee; M25.562 Pain in left knee; G62.9 Polyneuropathy, unspecified; J45.909 Unspecified asthma, uncomplicated; G43.909 Migraine, unspecified, not intractable, without status migrainosus; R79.89 Other specified abnormal findings of blood chemistry; E66.9 Obesity, unspecified; Z68.34 Body mass index [BMI] 34.0-34.9, adult; Z86.73 Personal history of transient ischemic attack (TIA), and cerebral infarction without residual deficits; Z79.84 Long term (current) use of oral hypoglycemic drugs; Z86.19 Personal history of other infectious and parasitic diseases; Z91.011 Allergy to milk products; W18.39XA Other fall on same level, initial encounter; Y93.89 Activity, other specified; Y92.238 Other place in hospital as the place of occurrence of the external cause
CPT/HCPCS: 36415; 80053; 81025; 82962; 85027; 86593; 93005; 93010; Q0162

== ENCOUNTER 2019-04-17 17:39 | Inpatient (IN) | payer OTHER ==
--- NOTE | 2019-04-17 11:54 | HP ---
[facility] Rehab Assess/Revision - Admission History Admitted to Rehab from: [facility] Date of Admission to Rehab: 04/17/19 - Findings Detox History & Physical reviewed: Yes Concur with findings: Yes Comments/Additional Findings: transferred from detox to rehab admission as per protocol Inpatient Rehab Admission - Rehab Decision to Admit Inpatient rehab admission?: Yes - Initial Determination Are CD services needed?: Yes Free of communicable disease: Yes Not in need of hospitalization: Yes - Rehab Admission Criteria Previous failed treatment: Yes Poor recovery environment: Yes Comorbidities: Yes Lacks judgement: Yes Patient is meeting Inpatient Rehab admission criteria:: Yes
[~2019-04-17 17:39] MED LIST: ALBUTEROL SO4 8 GM HFA INHALER IH PRN; LOPERAMIDE HCL 2 MG CAPSULE PO PRN; MAG HYDROX/AL HYDROX/SIMETH 30 ML UNIT-DOSE CUP PO PRN; MAGNESIUM CITRATE 300 ML BOTTLE PO PRN; MAGNESIUM HYDROX 2400MG/30ML ORAL SUSPENSION 30 ML CUP PO PRN; MENTHOL/PHENOL 1 EACH UD MM PRN; NICOTINE POLACRILEX 2 MG GUM BUC PRN; P-EPHED 60MG/TRIPROLIDI 2.5MG TABLET PO PRN; guaiFENesin 200 MG/10 ML 10 ML UNIT-DOSE CUPS PO PRN
[2019-04-17] MEDS: THIAMINE HCL 100 MG TABLET (FP) PO SCH (21:46)
[2019-04-17] MEDS: MELATONIN 5 MG TABLETS PO PRN (21:47)
[2019-04-17] MEDS: IBUPROFEN 400 MG TABLET (FP) PO PRN (21:56)
[2019-04-17] MEDS ORDERED: QUEtiapine FUMARATE 100 MG TABLET (FP) PO SCH (22:00)
[2019-04-18] MEDS: ACETAMINOPHEN 325 MG TABLET (FP) PO PRN ×2 (00:27→21:27)
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
[2019-04-18] MEDS: PRENATAL VITAMINS W/ FOLIC ACID TABLET (FP) PO SCH (09:13)
[2019-04-18] MEDS: IBUPROFEN 400 MG TABLET (FP) PO PRN (09:13)
[2019-04-18] MEDS: BUPRENORPHINE/NALOXONE 8 MG/2 MG FILM PACKET SL SCH (09:14)
[2019-04-18] MEDS: NICOTINE 21 MG/24 HOURS TOPICAL PATCH TD SCH (09:14)
--- NOTE | 2019-04-18 11:27 | PN ---
[facility] Progress Note Note: Pt is a 49 y/o female with a hx of ETHAN admitted to rehab after detox treatment on . pt reports her primary care provider is Dr. Sudhir [place] [address] [place] . Pt reports she has her next medical appointment on 04/21/19 but will call to reschedule since she is in rehab. Pt is on Suboxone 8mg/2mg sl daily with [facility] but does not remember the name of her provider who is located at the [address] [facility] Location Pt has a PMHx dislocated disc, blood clot to left femur in 08/2018( and on Xarelto which she says she left at home and forgot to mention to provider on admission. Last taken "one week ago, the night before I came" to detox admission). DM: Pt reports her doctor stopped Metformin one month ago and not taking anything now. Vital Signs - 24 hr 04/18/19 04/18/19 03:30 07:11 Temperature 97.4 F L Pulse Rate 94 H Respiratory 18 18 Rate Blood Pressure 99/64 Alert o x 3,denies s/h/i unsteady gait oob in wheelchair/cane. A/P new rehab pt Maintain safety confirmed Xarelto dose of 10 mg po daily and Genvoya with jeanne Kiser at [facility],in the [place]. However on discussion with Mr. Leonard at [facility] pharmacy, Xalreto and Genvoya has a severe interaction for bleeding. Will hold Xalralto for now until his primary care doctor is contacted.
[2019-04-18] MEDS: ELVITEG/COB/EMTRI/TENOF (GENVOYA) TABLET (NF) PO SCH (16:40)
[2019-04-18] MEDS ORDERED: RIVAROXABAN 10 MG TABLET PO SCH (17:30)
[2019-04-18] MEDS: THIAMINE HCL 100 MG TABLET (FP) PO SCH (21:25)
[2019-04-18] MEDS: QUEtiapine FUMARATE 200 MG TABLET PO SCH (21:27)
[2019-04-18] MEDS: MELATONIN 5 MG TABLETS PO PRN (21:28)
[2019-04-19] MEDS: ACETAMINOPHEN 325 MG TABLET (FP) PO PRN ×3 (06:23→20:30)
[2019-04-19] MEDS ORDERED: RIVAROXABAN 10 MG TABLET PO SCH (10:00)
[2019-04-19] MEDS: PRENATAL VITAMINS W/ FOLIC ACID TABLET (FP) PO SCH (10:22)
[2019-04-19] MEDS: ELVITEG/COB/EMTRI/TENOF (GENVOYA) TABLET (NF) PO SCH (10:22)
[2019-04-19] MEDS: BUPRENORPHINE/NALOXONE 8 MG/2 MG FILM PACKET SL SCH (10:23)
[2019-04-19] MEDS: NICOTINE 21 MG/24 HOURS TOPICAL PATCH TD SCH (10:23)
[2019-04-19] MEDS: METHOCARBAMOL 500 MG TABLET PO PRN ×2 (10:24→16:25)
[2019-04-19] MEDS: LIDOCAINE 5% TOPICAL PATCH TP SCH (12:00)
--- NOTE | 2019-04-19 12:46 | PN ---
[facility] Progress Note Note: Placed a call this morning to pt,s home pharmacy today as well as to her primary care provider Dr. Sudhir Parks. The pharmacist Margi verified pt is currently on Genvoya and Xeralto filled on same day 03/31/19 by her primary care doctor. Meanwhile this editorial writer was unable to speak to dr Parks as was told he was seeing a patient. My ph number was left with the medical safety director for a call back. This editorial writer repeated a call to Dr. Parks at about 12:25 and was told he is at lunch and message will be relayed to him. MDm:Need to d/w PCP if he advices to continue with both medications in rehab given the interactions of possible increased bleeding.
[2019-04-19] MEDS: MELATONIN 5 MG TABLETS PO PRN (20:30)
[2019-04-19] MEDS: hydrOXYzine PAMOATE 50 MG CAPSULE (FP) PO PRN (20:30)
[2019-04-19] MEDS ORDERED: PT OWN MED DRAWER 7, Y5N ONE (21:51)
[2019-04-19] MEDS: THIAMINE HCL 100 MG TABLET (FP) PO SCH (21:52)
[2019-04-19] MEDS: QUEtiapine FUMARATE 200 MG TABLET PO SCH (21:52)
[2019-04-19] MEDS: LIDOCAINE PATCH REMOVAL MC SCH (21:52)
[2019-04-20] MEDS: ACETAMINOPHEN 325 MG TABLET (FP) PO PRN ×2 (06:34→21:22)
[2019-04-20] MEDS: METHOCARBAMOL 500 MG TABLET PO PRN ×2 (06:34→16:37)
[2019-04-20] MEDS: LIDOCAINE 5% TOPICAL PATCH TP SCH (09:19)
[2019-04-20] MEDS: BUPRENORPHINE/NALOXONE 8 MG/2 MG FILM PACKET SL SCH (09:19)
[2019-04-20] MEDS: NICOTINE 21 MG/24 HOURS TOPICAL PATCH TD SCH (09:19)
[2019-04-20] MEDS: PRENATAL VITAMINS W/ FOLIC ACID TABLET (FP) PO SCH (09:19)
[2019-04-20] MEDS: ELVITEG/COB/EMTRI/TENOF (GENVOYA) TABLET (NF) PO SCH (09:19)
--- NOTE | 2019-04-20 10:01 | PN ---
[facility] Progress Note Note: This provider called back [facility] this morning and was able to speak to Dr. Sudhir Parks who advised to hold Genvoya until he can change to another antiretroviral medication and restart Xeralto 10 mg po daily until patient goes back to the promotional representative for follow up. This appeals writer has requested for Dr. Parks to fax the orders of this discussion to number givenat . Dr. Parks states he will call this provider today with information of possible antiretroviral change. Vital Signs - 24 hr 04/20/19 04/20/19 03:30 07:29 Temperature 97.8 F Pulse Rate 80 Respiratory 18 18 Rate Blood Pressure 131/[address] Parks's fax and call.
[2019-04-20] MEDS ORDERED: RIVAROXABAN 10 MG TABLET PO SCH ×2 (10:09→17:30)
[2019-04-20] MEDS ORDERED: RIVAROXABAN 10 MG TABLET PO ONE (10:40)
[2019-04-20] MEDS ORDERED: PT OWN MED DRAWER 7, Y5N ONE (10:49)
[2019-04-20] MEDS: METHYL SALICYLATE/MENTHOL OINT 30 GM TUBE TP SCH ×2 (13:06→21:23)
[2019-04-20] MEDS: THIAMINE HCL 100 MG TABLET (FP) PO SCH (21:19)
[2019-04-20] MEDS: hydrOXYzine PAMOATE 50 MG CAPSULE (FP) PO PRN (21:19)
[2019-04-20] MEDS: MELATONIN 5 MG TABLETS PO PRN (21:19)
[2019-04-20] MEDS: QUEtiapine FUMARATE 200 MG TABLET PO SCH (21:19)
[2019-04-20] MEDS: LIDOCAINE PATCH REMOVAL MC SCH (21:20)
[2019-04-21] MEDS ORDERED: PT OWN MED DRAWER 7, Y5N ONE (09:02)
[2019-04-21] MEDS: LIDOCAINE 5% TOPICAL PATCH TP SCH (09:57)
[2019-04-21] MEDS: METHYL SALICYLATE/MENTHOL OINT 30 GM TUBE TP SCH ×2 (09:57→21:11)
[2019-04-21] MEDS: BUPRENORPHINE/NALOXONE 8 MG/2 MG FILM PACKET SL SCH (09:57)
[2019-04-21] MEDS: PRENATAL VITAMINS W/ FOLIC ACID TABLET (FP) PO SCH (09:57)
[2019-04-21] MEDS: NICOTINE 21 MG/24 HOURS TOPICAL PATCH TD SCH (09:58)
[2019-04-21] MEDS ORDERED: RIVAROXABAN 10 MG TABLET PO SCH (10:00)
[2019-04-21] MEDS: METHOCARBAMOL 500 MG TABLET PO PRN ×2 (10:02→21:10)
[2019-04-21] MEDS: hydrOXYzine PAMOATE 50 MG CAPSULE (FP) PO PRN ×2 (10:02→21:10)
[2019-04-21] MEDS: ACETAMINOPHEN 325 MG TABLET (FP) PO PRN ×2 (10:02→15:11)
[2019-04-21] MEDS: RIVAROXABAN 10 MG TABLET PO SCH (10:11)
[2019-04-21] MEDS: THIAMINE HCL 100 MG TABLET (FP) PO SCH (21:10)
[2019-04-21] MEDS: QUEtiapine FUMARATE 200 MG TABLET PO SCH (21:10)
[2019-04-21] MEDS: LIDOCAINE PATCH REMOVAL MC SCH (21:10)
[2019-04-21] MEDS: MELATONIN 5 MG TABLETS PO PRN (21:10)
[2019-04-22] MEDS: METHOCARBAMOL 500 MG TABLET PO PRN ×2 (06:33→16:50)
[2019-04-22] MEDS ORDERED: PT OWN MED DRAWER 7, Y5N ONE (08:49)
[2019-04-22] MEDS: LIDOCAINE 5% TOPICAL PATCH TP SCH (10:20)
[2019-04-22] MEDS: BUPRENORPHINE/NALOXONE 8 MG/2 MG FILM PACKET SL SCH (10:21)
[2019-04-22] MEDS: PRENATAL VITAMINS W/ FOLIC ACID TABLET (FP) PO SCH (10:21)
[2019-04-22] MEDS: RIVAROXABAN 10 MG TABLET PO SCH (10:21)
[2019-04-22] MEDS: ACETAMINOPHEN 325 MG TABLET (FP) PO PRN ×3 (10:22→21:48)
[2019-04-22] MEDS: NICOTINE 21 MG/24 HOURS TOPICAL PATCH TD SCH (10:25)
[2019-04-22] MEDS: METHYL SALICYLATE/MENTHOL OINT 30 GM TUBE TP SCH ×2 (10:25→21:49)
--- NOTE | 2019-04-22 17:35 | PN ---
[facility] Progress Note Note: Dr Parks called today to inform that he is planning to start pt on Odefsey. Discussed with him that this will be brought to Dr Alcala's attention since pt has never been on that medication with him before coming to treatment here re: blood work evaluations prior to starting antiretrovirals which is not available to us. Dr Parks mentioned that if pt will be discharging as early as Thursday , then she can come back to him to start the regimen. He stated that pt had an appointment today which she missed but can start med with him on Thursday after discharge. Discussed with Dr. Alcala who is in agreement for pt to follow up with her primary care to start the new regimen. Pt has been informed of discussion with her primary care. Vital Signs - 24 hr 04/22/19 04/22/19 03:30 07:14 Temperature 98.2 F Pulse Rate 87 Respiratory 18 18 Rate Blood Pressure 112/68 Alert o x 3 nad oob w/ use of wheelchair visible on the unit and participating in unit activities/groups Pt followed up with her counselor, Ms Guille Cullen and arrangement for discharge on Thursday04/25/19 initiated to enable patient to follow up with her medical management of her comorbid condition. Pt is agreeable to poc.
[2019-04-22] MEDS: hydrOXYzine PAMOATE 50 MG CAPSULE (FP) PO PRN (21:48)
[2019-04-22] MEDS: THIAMINE HCL 100 MG TABLET (FP) PO SCH (21:48)
[2019-04-22] MEDS: QUEtiapine FUMARATE 200 MG TABLET PO SCH (21:48)
[2019-04-22] MEDS: LIDOCAINE PATCH REMOVAL MC SCH (21:49)
[2019-04-23] MEDS: METHOCARBAMOL 500 MG TABLET PO PRN ×2 (06:46→21:46)
[2019-04-23] MEDS: METHYL SALICYLATE/MENTHOL OINT 30 GM TUBE TP SCH ×2 (09:14→21:44)
[2019-04-23] MEDS: LIDOCAINE 5% TOPICAL PATCH TP SCH (09:15)
[2019-04-23] MEDS: NICOTINE 21 MG/24 HOURS TOPICAL PATCH TD SCH (09:15)
[2019-04-23] MEDS: PRENATAL VITAMINS W/ FOLIC ACID TABLET (FP) PO SCH (09:15)
[2019-04-23] MEDS: RIVAROXABAN 10 MG TABLET PO SCH (09:16)
[2019-04-23] MEDS: BUPRENORPHINE/NALOXONE 8 MG/2 MG FILM PACKET SL SCH (09:16)
[2019-04-23] MEDS ORDERED: PT OWN MED DRAWER 7, Y5N ONE (19:03)
[2019-04-23] MEDS: QUEtiapine FUMARATE 200 MG TABLET PO SCH (21:45)
[2019-04-23] MEDS: ACETAMINOPHEN 325 MG TABLET (FP) PO PRN (21:45)
[2019-04-23] MEDS: LIDOCAINE PATCH REMOVAL MC SCH (21:45)
[2019-04-23] MEDS: MELATONIN 5 MG TABLETS PO PRN (21:46)
[2019-04-23] MEDS: hydrOXYzine PAMOATE 50 MG CAPSULE (FP) PO PRN (21:46)
[2019-04-23] MEDS: THIAMINE HCL 100 MG TABLET (FP) PO SCH (21:54)
[2019-04-24] MEDS: ACETAMINOPHEN 325 MG TABLET (FP) PO PRN (06:59)
[2019-04-24] MEDS: PRENATAL VITAMINS W/ FOLIC ACID TABLET (FP) PO SCH (09:47)
[2019-04-24] MEDS: NICOTINE 21 MG/24 HOURS TOPICAL PATCH TD SCH (09:47)
[2019-04-24] MEDS: LIDOCAINE 5% TOPICAL PATCH TP SCH (09:47)
[2019-04-24] MEDS: METHYL SALICYLATE/MENTHOL OINT 30 GM TUBE TP SCH ×2 (09:47→21:38)
[2019-04-24] MEDS: BUPRENORPHINE/NALOXONE 8 MG/2 MG FILM PACKET SL SCH (09:48)
[2019-04-24] MEDS: RIVAROXABAN 10 MG TABLET PO SCH (09:48)
[2019-04-24] MEDS: METHOCARBAMOL 500 MG TABLET PO PRN ×2 (09:49→21:40)
--- NOTE | 2019-04-24 10:52 | PN ---
[facility] Progress Note Note: Patient is scheduled for discharge tomorrow. Script for 30 days supply of Seroquel 200 mg/hs will be electronically transmitted to [facility] at [facility] [place] [address]
[2019-04-24] MEDS: THIAMINE HCL 100 MG TABLET (FP) PO SCH (21:38)
[2019-04-24] MEDS: LIDOCAINE PATCH REMOVAL MC SCH (21:38)
[2019-04-24] MEDS: QUEtiapine FUMARATE 200 MG TABLET PO SCH (21:38)
[2019-04-24] MEDS: MELATONIN 5 MG TABLETS PO PRN (21:40)
[2019-04-25] MEDS: METHOCARBAMOL 500 MG TABLET PO PRN (06:43)
[2019-04-25] MEDS: ACETAMINOPHEN 325 MG TABLET (FP) PO PRN (06:43)
[2019-04-25 07:26] VITALS: BP 109/69; PULSE 90; TEMP 97.9
--- NOTE | 2019-04-25 08:38 | DS ---
[facility] Rehab Discharge Summary - [facility] Rehab Discharge Summary Admission Date: 04/17/19 Discharge Date: 04/25/19 - History Present History: Alcohol dependence, Cannabis dependence, Cocaine dependence Additional Comments: Pt is a 49 y/o female with a hx of ETHAN and on Suboxone MAT scheduled to discharge today to follow up with his medical provider Dr Parks today. Pertinent Past History: Asthma HTN DM HLD HIV+ PTSD MDD - Discharge Physical Exam Vital Signs: Vital Signs Temperature 97.9 F 04/25/19 07:25 Pulse Rate 90 04/25/19 07:25 Respiratory Rate 18 04/25/19 07:25 Blood Pressure 109/69 04/25/19 07:25 O2 Sat by Pulse Oximetry (%) Pertinent Admission Physical Exam Findings: Laboratory Tests 04/19/19 04/20/19 04/21/19 06:26 06:32 06:32 POC Glucometer 124 98 102 04/22/19 04/23/19 04/24/19 06:30 06:43 06:27 POC Glucometer 113 137 122 04/25/19 06:42 POC Glucometer 157 - Treatment Discharge Condition: Discharge condition good Hospital Course: rehabilitated safely. - Medication Discharge Medications: Ambulatory Orders Venlafaxine HCl ER [Effexor Xr -] 75 mg PO BID 06/08/13 Doxepin HCl [Sinequan -] 100 mg PO HS 09/20/18 Elviteg/Cob/Emtri/Tenof Alafen [Genvoya Tablet] 1 each PO DAILY 30 Days #30 tablet 09/23/18 Lisinopril [Prinivil] 10 mg PO BID 30 Days #60 tablet 09/23/18 metFORMIN HCL [Glucophage -] 500 mg PO BID 30 Days #60 tablet 09/23/18 Albuterol Sulfate Inhaler - [Ventolin Hfa Inhaler -] 1 - 2 inh PO PRN PRN Buprenorphine HCl/Naloxone HCl [Buprenorp-Nalox 8-2 mg Sl Film] 1 each SL DAILY 04/17/19 Rivaroxaban [Xarelto] 10 mg PO DAILY 04/18/19 Quetiapine Fumarate [Seroquel -] 200 mg PO HS #30 tablet 04/24/19 Buprenorphine/Naloxone [Suboxone 8Mg/2Mg Sl Film -] 1 each SL DAILY 7 Days #7 packet MDD 1 04/25/19 - Medication-Assisted Treatment (MAT) Medication-Assisted Treatment (MAT): Yes Medication Prescribed: Suboxone MAT Follow-up Referral: [facility] - Discharge Instructions Diet, activity, other medical instructions: Diet:Regular Activity: oob ad katarina Other medical instructions:Follow up with CD aftercare recommendation as scheduled. Follow up with PCP Dr. Parks today After discharge for medical management. - Diagnosis (1) Alcohol dependence Status: Chronic Qualifiers: Substance use status: uncomplicated Qualified Code(s): F10.20 - Alcohol dependence, uncomplicated (2) Cannabis dependence Status: Chronic (3) Cocaine dependence Status: Chronic Qualifiers: Substance use status: uncomplicated Qualified Code(s): F14.20 - Cocaine dependence, uncomplicated (4) Nicotine dependence Status: Chronic Qualifiers: Nicotine product type: cigarettes Substance use status: uncomplicated Qualified Code(s): F17.210 - Nicotine dependence, cigarettes, uncomplicated (5) Asthma Status: Chronic Qualifiers: Asthma severity: mild Asthma persistence: intermittent Asthma complication type: uncomplicated Qualified Code(s): J45.20 - Mild intermittent asthma, uncomplicated (6) DM (diabetes mellitus), type 2 Status: Chronic Qualifiers: Diabetes mellitus predatory animal exterminator insulin use: without predatory animal exterminator use Diabetes mellitus complication status: with other specified complication Qualified Code (s): E11.69 - Type 2 diabetes mellitus with other specified complication (7) Encounter for monitoring Suboxone maintenance therapy Status: Chronic (8) Essential hypertension Status: Chronic (9) Human immunodeficiency virus infection Status: Chronic Qualifiers: HIV symptom status: asymptomatic Qualified Code(s): Z21 - Asymptomatic human immunodeficiency virus [HIV] infection status (10) Hyperlipidemia Status: Chronic Qualifiers: Hyperlipidemia type: unspecified Qualified Code(s): E78.5 - Hyperlipidemia , unspecified - Follow-up Referral Minutes to complete discharge: 25 - AMA Did Patient Leave Against Medical Advice: No Additional Comments: Suboxone 8-2 mg sl daily #7 electronically sent to pt's home pharmacy for pickling operator. Pt reports she has her meds at home.
[2019-04-25] MEDS: RIVAROXABAN 10 MG TABLET PO SCH (09:03)
[2019-04-25] MEDS: LIDOCAINE 5% TOPICAL PATCH TP SCH (09:03)
[2019-04-25] MEDS: BUPRENORPHINE/NALOXONE 8 MG/2 MG FILM PACKET SL SCH (09:03)
[2019-04-25] MEDS: PRENATAL VITAMINS W/ FOLIC ACID TABLET (FP) PO SCH (09:03)
[2019-04-25] MEDS: METHYL SALICYLATE/MENTHOL OINT 30 GM TUBE TP SCH (09:05)
[2019-04-25] MEDS: NICOTINE 21 MG/24 HOURS TOPICAL PATCH TD SCH (09:05)
== END 2019-04-25 09:24 | disposition home or self-care (01) | DRG 772 ==
LOC: YASAS 17:39 → Y3E 18:33
PROVIDERS: ADMIT Neuromusculoskeletal Medicine & OMM; ATTEND Neuromusculoskeletal Medicine & OMM
PROC: HZ42ZZZ Group Counseling for Substance Abuse Treatment, Cognitive-Behavioral (ICD-10-PCS; principal; 2019-04-17)
DX: F10.20 Alcohol dependence, uncomplicated (principal); F11.20 Opioid dependence, uncomplicated; F14.20 Cocaine dependence, uncomplicated; F12.20 Cannabis dependence, uncomplicated; F17.210 Nicotine dependence, cigarettes, uncomplicated; F31.9 Bipolar disorder, unspecified; F19.24 Other psychoactive substance dependence with psychoactive substance-induced mood disorder; F19.282 Other psychoactive substance dependence with psychoactive substance-induced sleep disorder; F43.10 Post-traumatic stress disorder, unspecified; I10 Essential (primary) hypertension; E11.69 Type 2 diabetes mellitus with other specified complication; J45.909 Unspecified asthma, uncomplicated; Z21 Asymptomatic human immunodeficiency virus [HIV] infection status; E78.5 Hyperlipidemia, unspecified; I82.409 Acute embolism and thrombosis of unspecified deep veins of unspecified lower extremity; Z91.011 Allergy to milk products; Z79.01 Long term (current) use of anticoagulants; Z86.73 Personal history of transient ischemic attack (TIA), and cerebral infarction without residual deficits; Z62.810 Personal history of physical and sexual abuse in childhood
CPT/HCPCS: 82962

== ENCOUNTER 2020-05-19 17:25 | Inpatient (IN) | payer OTHER ==
[2020-05-19 18:47] VITALS: BMI 40.3
[2020-05-19] MEDS ORDERED: ONDANSETRON *ODT* 4 MG TABLET SL PRN (21:59)
[2020-05-19] MEDS ORDERED: DICYCLOMINE HCL 10 MG CAPSULE PO PRN (21:59)
[2020-05-19] MEDS ORDERED: MAGNESIUM CITRATE 300 ML BOTTLE PO PRN (21:59)
[2020-05-19] MEDS ORDERED: P-EPHED 60MG/TRIPROLIDI 2.5MG TABLET PO PRN (21:59)
[2020-05-19] MEDS ORDERED: LOPERAMIDE HCL 2 MG CAPSULE PO PRN (21:59)
[2020-05-19] MEDS ORDERED: guaiFENesin 200 MG/10 ML 10 ML UNIT-DOSE CUPS PO PRN (21:59)
[2020-05-19] MEDS ORDERED: MENTHOL/PHENOL 1 EACH UD MM PRN (21:59)
[2020-05-19] MEDS ORDERED: NICOTINE POLACRILEX 2 MG GUM BUC PRN (21:59)
[2020-05-19] MEDS ORDERED: METHOCARBAMOL 500 MG TABLET PO PRN (21:59)
[2020-05-19] MEDS ORDERED: chlordiazePOXIDE HCL 25 MG CAPSULE PO PRN (21:59)
[2020-05-19] MEDS ORDERED: ACETAMINOPHEN 325 MG TABLET (FP) PO PRN (21:59)
[2020-05-19] MEDS ORDERED: MAGNESIUM HYDROX 2400MG/30ML ORAL SUSPENSION 30 ML CUP PO PRN (21:59)
[2020-05-19] MEDS ORDERED: MAG HYDROX/AL HYDROX/SIMETH 30 ML UNIT-DOSE CUP PO PRN (21:59)
[2020-05-19] MEDS: chlordiazePOXIDE HCL 25 MG CAPSULE PO SCH (23:52)
[2020-05-19] MEDS: MELATONIN 5 MG TABLETS PO SCH (23:54)
[2020-05-19] MEDS: THIAMINE HCL 100 MG TABLET (FP) PO SCH (23:54)
[2020-05-20] MEDS: chlordiazePOXIDE HCL 25 MG CAPSULE PO SCH ×4 (06:35→22:59)
[2020-05-20] MEDS: NICOTINE 21 MG/24 HOURS TOPICAL PATCH TD SCH (10:14)
[2020-05-20 12:04] LABS: POTASSIUM 3.6 mmol/L (3.5-5.1)
[2020-05-20 12:10] LABS: CALCIUM 8.7 mg/dL (8.5-10.1)
[2020-05-20 12:11] LABS: ALBUMIN 3.1 g/dl (3.4-5.0); BLOOD UREA NITROGEN 19.5 mg/dL (7-18)
[2020-05-20 12:12] LABS: HEMATOCRIT 35.2 % (32.4-45.2); HEMOGLOBIN 11.9 GM/dL (10.7-15.3); MCH 32.7 pg (25.7-33.7); MCHC 33.9 g/dl (32.0-36.0); MEAN CELL VOLUME 96.4 fl (80-96); MEAN PLT VOLUME 7.9 fl (7.5-11.1); PLATELET COUNT 258 K/MM3 (134-434); RBC 3.66 M/mm3 (3.60-5.2); RDW 13.7 % (11.6-15.6); WHITE BLOOD COUNT 6.6 K/mm3 (4.0-10.0)
[2020-05-20 12:14] LABS: CREATININE 0.9 mg/dL (0.55-1.3)
[2020-05-20 12:16] LABS: BILIRUBIN,TOTAL 0.4 mg/dL (0.2-1); TOT PROT 6.9 g/dl (6.4-8.2)
[2020-05-20] MEDS: EMTRICITAB/RILPIVIRI/TENOF ALA (ODEFSEY) TABLET PO SCH (13:51)
[2020-05-20] MEDS: ACETAMINOPHEN 325 MG TABLET (FP) PO PRN (13:53)
[2020-05-20] MEDS: LISINOPRIL 10 MG TABLET PO SCH (13:54)
[2020-05-20] MEDS: PRENATAL VITAMINS W/ FOLIC ACID TABLET (FP) PO SCH (13:54)
[2020-05-20] MEDS: RIVAROXABAN 10 MG TABLET PO SCH (13:55)
[2020-05-20] MEDS ORDERED: ACETAMINOPHEN 325 MG TABLET (FP) PO ONE (14:15)
[2020-05-20] MEDS: VENLAFAXINE HCL 75 MG E.R. CAPSULES PO SCH (17:49)
[2020-05-20] MEDS: INSULIN SLIDING SCALE (NOVOLOG) 1 VIAL SQ SCH ×2 (17:53→23:02)
[2020-05-20] MEDS: THIAMINE HCL 100 MG TABLET (FP) PO SCH (22:59)
[2020-05-20] MEDS: QUEtiapine FUMARATE 300 MG TABLET PO SCH (22:59)
[2020-05-20] MEDS: MELATONIN 5 MG TABLETS PO SCH (23:02)
[2020-05-21] MEDS: chlordiazePOXIDE HCL 25 MG CAPSULE PO SCH ×4 (06:08→22:31)
[2020-05-21] MEDS: VENLAFAXINE HCL 75 MG E.R. CAPSULES PO SCH ×2 (10:15→18:10)
[2020-05-21] MEDS: RIVAROXABAN 10 MG TABLET PO SCH (10:18)
[2020-05-21] MEDS: PRENATAL VITAMINS W/ FOLIC ACID TABLET (FP) PO SCH (10:18)
[2020-05-21] MEDS: EMTRICITAB/RILPIVIRI/TENOF ALA (ODEFSEY) TABLET PO SCH (10:18)
[2020-05-21] MEDS: LISINOPRIL 10 MG TABLET PO SCH (10:18)
[2020-05-21] MEDS: NICOTINE 21 MG/24 HOURS TOPICAL PATCH TD SCH (10:18)
[2020-05-21] MEDS: INSULIN SLIDING SCALE (NOVOLOG) 1 VIAL SQ SCH ×3 (10:53→22:31)
[2020-05-21 15:42] LABS: EPI CELLS >36 /uL (0-25.1); HYALINE CASTS 2 /uL (0-3.1); PH,URINE 7.5 (5.0-8.0); URINE APPEARANCE CLOUDY; URINE BACTERIA 1249 /uL (0-1359); URINE BILIRUBIN NEGATIVE (NEGATIVE); URINE COLOR YELLOW; URINE GLUCOSE (UA) NEGATIVE (NEGATIVE); URINE KETONE NEGATIVE (NEGATIVE); URINE LEUK ESTERASE 1+ (NEGATIVE); URINE NITRITE NEGATIVE (NEGATIVE); URINE PROTEIN NEGATIVE (NEGATIVE); URINE RBC 24 /uL (0-23.9); URINE UROBILINOGEN 0.2 mg/dL (0.2-1.0); URINE WBC 33 /uL (0-25.8)
[2020-05-21] MEDS: ACETAMINOPHEN 325 MG TABLET (FP) PO PRN (18:10)
[2020-05-21] MEDS: THIAMINE HCL 100 MG TABLET (FP) PO SCH (22:31)
[2020-05-21] MEDS: QUEtiapine FUMARATE 300 MG TABLET PO SCH (22:31)
[2020-05-21] MEDS: MELATONIN 5 MG TABLETS PO SCH (22:31)
[2020-05-22] MEDS ORDERED: chlordiazePOXIDE HCL 10 MG CAPSULE PO PRN
[2020-05-22 02:16] LABS: URINE APPEARANCE CLEAR; URINE BILIRUBIN NEGATIVE (NEGATIVE); URINE COLOR YELLOW; URINE GLUCOSE (UA) NEGATIVE (NEGATIVE); URINE KETONE NEGATIVE (NEGATIVE)
[2020-05-22 02:17] LABS: URINE LEUK ESTERASE NEGATIVE (NEGATIVE); URINE NITRITE NEGATIVE (NEGATIVE); URINE PROTEIN NEGATIVE (NEGATIVE)
[2020-05-22] MEDS: chlordiazePOXIDE HCL 10 MG CAPSULE PO SCH ×4 (06:48→22:38)
[2020-05-22] MEDS: INSULIN SLIDING SCALE (NOVOLOG) 1 VIAL SQ SCH ×3 (08:16→18:19)
[2020-05-22] MEDS: LISINOPRIL 10 MG TABLET PO SCH (10:23)
[2020-05-22] MEDS: PRENATAL VITAMINS W/ FOLIC ACID TABLET (FP) PO SCH (10:23)
[2020-05-22] MEDS: EMTRICITAB/RILPIVIRI/TENOF ALA (ODEFSEY) TABLET PO SCH (10:23)
[2020-05-22] MEDS: VENLAFAXINE HCL 75 MG E.R. CAPSULES PO SCH ×2 (10:23→18:17)
[2020-05-22] MEDS: RIVAROXABAN 10 MG TABLET PO SCH (10:24)
[2020-05-22] MEDS: NICOTINE 21 MG/24 HOURS TOPICAL PATCH TD SCH (10:24)
[2020-05-22] MEDS: QUEtiapine FUMARATE 300 MG TABLET PO SCH (22:39)
[2020-05-22] MEDS: THIAMINE HCL 100 MG TABLET (FP) PO SCH (22:39)
[2020-05-22] MEDS: MELATONIN 5 MG TABLETS PO SCH (22:39)
[2020-05-22] MEDS: ACETAMINOPHEN 325 MG TABLET (FP) PO PRN (22:39)
[2020-05-23] MEDS: INSULIN SLIDING SCALE (NOVOLOG) 1 VIAL SQ SCH ×3 (00:19→11:30)
[2020-05-23] MEDS: chlordiazePOXIDE HCL 10 MG CAPSULE PO SCH ×2 (06:04→17:57)
[2020-05-23] MEDS: VENLAFAXINE HCL 75 MG E.R. CAPSULES PO SCH ×2 (11:00→17:57)
[2020-05-23] MEDS: PRENATAL VITAMINS W/ FOLIC ACID TABLET (FP) PO SCH (11:00)
[2020-05-23] MEDS: LISINOPRIL 10 MG TABLET PO SCH (11:00)
[2020-05-23] MEDS: NICOTINE 21 MG/24 HOURS TOPICAL PATCH TD SCH (11:01)
[2020-05-23] MEDS: EMTRICITAB/RILPIVIRI/TENOF ALA (ODEFSEY) TABLET PO SCH (11:01)
[2020-05-23] MEDS: RIVAROXABAN 10 MG TABLET PO SCH (11:01)
[2020-05-23] MEDS: ACETAMINOPHEN 325 MG TABLET (FP) PO PRN (21:05)
[2020-05-23] MEDS: MELATONIN 5 MG TABLETS PO SCH (22:08)
[2020-05-23] MEDS: THIAMINE HCL 100 MG TABLET (FP) PO SCH (22:08)
[2020-05-23] MEDS: QUEtiapine FUMARATE 300 MG TABLET PO SCH (22:08)
[2020-05-24] MEDS ORDERED: chlordiazePOXIDE HCL 10 MG CAPSULE PO ONE (05:00)
[2020-05-24 09:05] VITALS: BP 114/72; PULSE 109; TEMP 98.1
== END 2020-05-24 10:43 | disposition other institution (70) | DRG 774 ==
LOC: YASAS 17:25 → Y6N 22:48
PROVIDERS: ADMIT Allergy & Immunology; ATTEND Allergy & Immunology
PROC: HZ2ZZZZ Detoxification Services for Substance Abuse Treatment (ICD-10-PCS; principal; 2020-05-19)
DX: F10.230 Alcohol dependence with withdrawal, uncomplicated (principal); F14.20 Cocaine dependence, uncomplicated; F12.20 Cannabis dependence, uncomplicated; F17.210 Nicotine dependence, cigarettes, uncomplicated; F19.282 Other psychoactive substance dependence with psychoactive substance-induced sleep disorder; F19.24 Other psychoactive substance dependence with psychoactive substance-induced mood disorder; F31.9 Bipolar disorder, unspecified; F43.10 Post-traumatic stress disorder, unspecified; Z21 Asymptomatic human immunodeficiency virus [HIV] infection status; G47.00 Insomnia, unspecified; J45.20 Mild intermittent asthma, uncomplicated; E11.9 Type 2 diabetes mellitus without complications; E78.5 Hyperlipidemia, unspecified; G43.909 Migraine, unspecified, not intractable, without status migrainosus; M54.5 Low back pain; G89.29 Other chronic pain; M79.661 Pain in right lower leg; M79.662 Pain in left lower leg; B18.2 Chronic viral hepatitis C; Z62.810 Personal history of physical and sexual abuse in childhood; Z86.19 Personal history of other infectious and parasitic diseases; Z86.73 Personal history of transient ischemic attack (TIA), and cerebral infarction without residual deficits; Z86.718 Personal history of other venous thrombosis and embolism; Z87.828 Personal history of other (healed) physical injury and trauma; Z91.5 Personal history of self-harm; Z91.011 Allergy to milk products; Z56.0 Unemployment, unspecified; Z59.0 Homelessness; Z98.51 Tubal ligation status; Z78.0 Asymptomatic menopausal state
CPT/HCPCS: 36415; 80053; 81003; 81025; 82962; 85027; 86593; 86780; 87086; 93005; 93010; C9803; Q0162; U0003

== ENCOUNTER 2020-05-24 11:03 | Inpatient (IN) | payer OTHER ==
[2020-05-24] MEDS ORDERED: MAGNESIUM CITRATE 300 ML BOTTLE PO PRN (12:03)
[2020-05-24] MEDS ORDERED: guaiFENesin 200 MG/10 ML 10 ML UNIT-DOSE CUPS PO PRN (12:03)
[2020-05-24] MEDS ORDERED: P-EPHED 60MG/TRIPROLIDI 2.5MG TABLET PO PRN (12:03)
[2020-05-24] MEDS ORDERED: IBUPROFEN 400 MG TABLET (FP) PO PRN (12:03)
[2020-05-24] MEDS ORDERED: MAG HYDROX/AL HYDROX/SIMETH 30 ML UNIT-DOSE CUP PO PRN (12:03)
[2020-05-24] MEDS ORDERED: MAGNESIUM HYDROX 2400MG/30ML ORAL SUSPENSION 30 ML CUP PO PRN (12:03)
[2020-05-24] MEDS ORDERED: MENTHOL/PHENOL 1 EACH UD MM PRN (12:03)
[2020-05-24] MEDS ORDERED: NICOTINE POLACRILEX 2 MG GUM BUC PRN (12:03)
[2020-05-24] MEDS ORDERED: LOPERAMIDE HCL 2 MG CAPSULE PO PRN (12:03)
[2020-05-24] MEDS ORDERED: VENLAFAXINE HCL 75 MG E.R. CAPSULES PO SCH (12:15)
[2020-05-24] MEDS: PRENATAL VITAMINS W/ FOLIC ACID TABLET (FP) PO SCH (13:18)
[2020-05-24] MEDS: METHYL SALICYLATE/MENTHOL OINT 30 GM TUBE TP SCH ×2 (13:18→21:22)
[2020-05-24] MEDS: NICOTINE 21 MG/24 HOURS TOPICAL PATCH TD SCH (13:18)
[2020-05-24] MEDS: RIVAROXABAN 10 MG TABLET PO SCH (13:18)
[2020-05-24] MEDS: VENLAFAXINE HCL 75 MG E.R. CAPSULES PO SCH ×2 (13:18→17:50)
[2020-05-24] MEDS: EMTRICITAB/RILPIVIRI/TENOF ALA (ODEFSEY) TABLET PO SCH (13:18)
[2020-05-24] MEDS: METHOCARBAMOL 500 MG TABLET PO SCH ×3 (13:19→21:18)
[2020-05-24] MEDS: LISINOPRIL 10 MG TABLET PO SCH (13:19)
[2020-05-24] MEDS: MELATONIN 5 MG TABLETS PO SCH (21:18)
[2020-05-24] MEDS: THIAMINE HCL 100 MG TABLET (FP) PO SCH (21:18)
[2020-05-24] MEDS ORDERED: QUEtiapine FUMARATE 100 MG TABLET (FP) ONE (21:19)
[2020-05-24] MEDS: QUEtiapine FUMARATE 300 MG TABLET PO SCH (21:20)
[2020-05-24] MEDS: ACETAMINOPHEN 325 MG TABLET (FP) PO PRN (21:21)
[2020-05-25] MEDS: LISINOPRIL 10 MG TABLET PO SCH (11:47)
[2020-05-25] MEDS: PRENATAL VITAMINS W/ FOLIC ACID TABLET (FP) PO SCH (11:47)
[2020-05-25] MEDS: RIVAROXABAN 10 MG TABLET PO SCH (11:47)
[2020-05-25] MEDS: VENLAFAXINE HCL 75 MG E.R. CAPSULES PO SCH ×2 (11:47→17:12)
[2020-05-25] MEDS: EMTRICITAB/RILPIVIRI/TENOF ALA (ODEFSEY) TABLET PO SCH (11:48)
[2020-05-25] MEDS: METHOCARBAMOL 500 MG TABLET PO SCH ×4 (11:48→21:48)
[2020-05-25] MEDS: NICOTINE 21 MG/24 HOURS TOPICAL PATCH TD SCH (11:48)
[2020-05-25] MEDS: METHYL SALICYLATE/MENTHOL OINT 30 GM TUBE TP SCH ×2 (11:50→21:49)
[2020-05-25] MEDS ORDERED: QUEtiapine FUMARATE 100 MG TABLET (FP) ONE (21:06)
[2020-05-25] MEDS: QUEtiapine FUMARATE 300 MG TABLET PO SCH (21:48)
[2020-05-25] MEDS: MELATONIN 5 MG TABLETS PO SCH (21:48)
[2020-05-25] MEDS: THIAMINE HCL 100 MG TABLET (FP) PO SCH (21:49)
[2020-05-26] MEDS: PRENATAL VITAMINS W/ FOLIC ACID TABLET (FP) PO SCH (10:19)
[2020-05-26] MEDS: METHOCARBAMOL 500 MG TABLET PO SCH ×4 (10:20→21:02)
[2020-05-26] MEDS: VENLAFAXINE HCL 75 MG E.R. CAPSULES PO SCH ×2 (10:20→18:19)
[2020-05-26] MEDS: RIVAROXABAN 10 MG TABLET PO SCH (10:20)
[2020-05-26] MEDS: LISINOPRIL 10 MG TABLET PO SCH (10:20)
[2020-05-26] MEDS: EMTRICITAB/RILPIVIRI/TENOF ALA (ODEFSEY) TABLET PO SCH (10:20)
[2020-05-26] MEDS: NICOTINE 21 MG/24 HOURS TOPICAL PATCH TD SCH (10:20)
[2020-05-26] MEDS: ACETAMINOPHEN 325 MG TABLET (FP) PO PRN (10:21)
[2020-05-26] MEDS: METHYL SALICYLATE/MENTHOL OINT 30 GM TUBE TP SCH ×2 (10:23→21:03)
[2020-05-26] MEDS ORDERED: QUEtiapine FUMARATE 100 MG TABLET (FP) ONE (19:33)
[2020-05-26] MEDS: MELATONIN 5 MG TABLETS PO SCH (21:02)
[2020-05-26] MEDS: THIAMINE HCL 100 MG TABLET (FP) PO SCH (21:02)
[2020-05-26] MEDS: QUEtiapine FUMARATE 300 MG TABLET PO SCH (21:03)
[2020-05-26] MEDS ORDERED: PT OWN MED DRAWER 7, Y5N ONE (21:04)
[2020-05-27] MEDS: PRENATAL VITAMINS W/ FOLIC ACID TABLET (FP) PO SCH (09:24)
[2020-05-27] MEDS: RIVAROXABAN 10 MG TABLET PO SCH (09:24)
[2020-05-27] MEDS: METHYL SALICYLATE/MENTHOL OINT 30 GM TUBE TP SCH ×2 (09:24→21:32)
[2020-05-27] MEDS: EMTRICITAB/RILPIVIRI/TENOF ALA (ODEFSEY) TABLET PO SCH (09:24)
[2020-05-27] MEDS: VENLAFAXINE HCL 75 MG E.R. CAPSULES PO SCH ×2 (09:25→16:29)
[2020-05-27] MEDS: ACETAMINOPHEN 325 MG TABLET (FP) PO PRN (09:25)
[2020-05-27] MEDS: METHOCARBAMOL 500 MG TABLET PO SCH ×4 (09:25→21:32)
[2020-05-27] MEDS: LISINOPRIL 10 MG TABLET PO SCH (09:25)
[2020-05-27] MEDS: NICOTINE 21 MG/24 HOURS TOPICAL PATCH TD SCH (09:25)
[2020-05-27] MEDS ORDERED: QUEtiapine FUMARATE 100 MG TABLET (FP) ONE (19:27)
[2020-05-27] MEDS: MELATONIN 5 MG TABLETS PO SCH (21:31)
[2020-05-27] MEDS: THIAMINE HCL 100 MG TABLET (FP) PO SCH (21:31)
[2020-05-27] MEDS: hydrOXYzine PAMOATE 25 MG CAPSULE (FP) PO PRN (21:32)
[2020-05-27] MEDS: QUEtiapine FUMARATE 300 MG TABLET PO SCH (21:33)
[2020-05-28] MEDS: PRENATAL VITAMINS W/ FOLIC ACID TABLET (FP) PO SCH (10:10)
[2020-05-28] MEDS: METHYL SALICYLATE/MENTHOL OINT 30 GM TUBE TP SCH ×2 (10:11→21:39)
[2020-05-28] MEDS: METHOCARBAMOL 500 MG TABLET PO SCH ×4 (10:11→21:38)
[2020-05-28] MEDS: VENLAFAXINE HCL 75 MG E.R. CAPSULES PO SCH ×2 (10:11→17:01)
[2020-05-28] MEDS: RIVAROXABAN 10 MG TABLET PO SCH (10:11)
[2020-05-28] MEDS: EMTRICITAB/RILPIVIRI/TENOF ALA (ODEFSEY) TABLET PO SCH (10:11)
[2020-05-28] MEDS: NICOTINE 21 MG/24 HOURS TOPICAL PATCH TD SCH (10:11)
[2020-05-28] MEDS: hydrOXYzine PAMOATE 25 MG CAPSULE (FP) PO PRN (10:11)
[2020-05-28] MEDS: LISINOPRIL 10 MG TABLET PO SCH (10:11)
[2020-05-28] MEDS: ACETAMINOPHEN 325 MG TABLET (FP) PO PRN (10:13)
[2020-05-28] MEDS ORDERED: QUEtiapine FUMARATE 100 MG TABLET (FP) ONE (20:55)
[2020-05-28] MEDS: QUEtiapine FUMARATE 300 MG TABLET PO SCH (21:38)
[2020-05-28] MEDS: THIAMINE HCL 100 MG TABLET (FP) PO SCH (21:38)
[2020-05-28] MEDS: MELATONIN 5 MG TABLETS PO SCH (21:38)
[2020-05-29] MEDS ORDERED: PT OWN MED DRAWER 7, Y5N ONE ×3 (08:56→16:42)
[2020-05-29] MEDS: PRENATAL VITAMINS W/ FOLIC ACID TABLET (FP) PO SCH (10:24)
[2020-05-29] MEDS: VENLAFAXINE HCL 75 MG E.R. CAPSULES PO SCH ×2 (10:25→17:18)
[2020-05-29] MEDS: NICOTINE 21 MG/24 HOURS TOPICAL PATCH TD SCH (10:25)
[2020-05-29] MEDS: METHOCARBAMOL 500 MG TABLET PO SCH ×4 (10:25→21:10)
[2020-05-29] MEDS: EMTRICITAB/RILPIVIRI/TENOF ALA (ODEFSEY) TABLET PO SCH (10:25)
[2020-05-29] MEDS: RIVAROXABAN 10 MG TABLET PO SCH (10:25)
[2020-05-29] MEDS: hydrOXYzine PAMOATE 25 MG CAPSULE (FP) PO PRN ×2 (10:25→21:10)
[2020-05-29] MEDS: LISINOPRIL 10 MG TABLET PO SCH (10:25)
[2020-05-29] MEDS: METHYL SALICYLATE/MENTHOL OINT 30 GM TUBE TP SCH ×2 (10:27→21:11)
[2020-05-29] MEDS: QUEtiapine FUMARATE 300 MG TABLET PO SCH (21:10)
[2020-05-29] MEDS: MELATONIN 5 MG TABLETS PO SCH (21:10)
[2020-05-29] MEDS: THIAMINE HCL 100 MG TABLET (FP) PO SCH (21:10)
[2020-05-30] MEDS ORDERED: PT OWN MED DRAWER 7, Y5N ONE ×3 (08:52→16:14)
[2020-05-30] MEDS: METHOCARBAMOL 500 MG TABLET PO SCH ×4 (10:52→21:01)
[2020-05-30] MEDS: PRENATAL VITAMINS W/ FOLIC ACID TABLET (FP) PO SCH (10:52)
[2020-05-30] MEDS: EMTRICITAB/RILPIVIRI/TENOF ALA (ODEFSEY) TABLET PO SCH (10:52)
[2020-05-30] MEDS: LISINOPRIL 10 MG TABLET PO SCH (10:52)
[2020-05-30] MEDS: METHYL SALICYLATE/MENTHOL OINT 30 GM TUBE TP SCH ×2 (10:52→21:01)
[2020-05-30] MEDS: RIVAROXABAN 10 MG TABLET PO SCH (10:52)
[2020-05-30] MEDS: NICOTINE 21 MG/24 HOURS TOPICAL PATCH TD SCH (10:52)
[2020-05-30] MEDS: ACETAMINOPHEN 325 MG TABLET (FP) PO PRN (10:59)
[2020-05-30] MEDS: VENLAFAXINE HCL 75 MG E.R. CAPSULES PO SCH ×2 (11:23→17:53)
[2020-05-30] MEDS: QUEtiapine FUMARATE 300 MG TABLET PO SCH (21:01)
[2020-05-30] MEDS: THIAMINE HCL 100 MG TABLET (FP) PO SCH (21:01)
[2020-05-30] MEDS: MELATONIN 5 MG TABLETS PO SCH (21:02)
[2020-05-31] MEDS ORDERED: PT OWN MED DRAWER 7, Y5N ONE ×2 (08:48→15:00)
[2020-05-31] MEDS: PRENATAL VITAMINS W/ FOLIC ACID TABLET (FP) PO SCH (09:43)
[2020-05-31] MEDS: METHOCARBAMOL 500 MG TABLET PO SCH ×4 (09:43→21:13)
[2020-05-31] MEDS: METHYL SALICYLATE/MENTHOL OINT 30 GM TUBE TP SCH ×2 (09:44→21:13)
[2020-05-31] MEDS: VENLAFAXINE HCL 75 MG E.R. CAPSULES PO SCH (09:44)
[2020-05-31] MEDS: LISINOPRIL 10 MG TABLET PO SCH (09:44)
[2020-05-31] MEDS: NICOTINE 21 MG/24 HOURS TOPICAL PATCH TD SCH (09:44)
[2020-05-31] MEDS: RIVAROXABAN 10 MG TABLET PO SCH (09:45)
[2020-05-31] MEDS: EMTRICITAB/RILPIVIRI/TENOF ALA (ODEFSEY) TABLET PO SCH (09:45)
[2020-05-31] MEDS: hydrOXYzine PAMOATE 25 MG CAPSULE (FP) PO PRN ×2 (09:45→21:14)
[2020-05-31] MEDS: THIAMINE HCL 100 MG TABLET (FP) PO SCH (21:12)
[2020-05-31] MEDS: MELATONIN 5 MG TABLETS PO SCH (21:12)
[2020-05-31] MEDS: QUEtiapine FUMARATE 300 MG TABLET PO SCH (21:14)
[2020-05-31] MEDS: ACETAMINOPHEN 325 MG TABLET (FP) PO PRN (21:14)
[2020-06-01] MEDS ORDERED: PT OWN MED DRAWER 7, Y5N ONE ×3 (09:03→13:30)
[2020-06-01] MEDS: LISINOPRIL 10 MG TABLET PO SCH (10:02)
[2020-06-01] MEDS: RIVAROXABAN 10 MG TABLET PO SCH (10:02)
[2020-06-01] MEDS: PRENATAL VITAMINS W/ FOLIC ACID TABLET (FP) PO SCH (10:02)
[2020-06-01] MEDS: VENLAFAXINE HCL 75 MG E.R. CAPSULES PO SCH (10:03)
[2020-06-01] MEDS: EMTRICITAB/RILPIVIRI/TENOF ALA (ODEFSEY) TABLET PO SCH (10:03)
[2020-06-01] MEDS: NICOTINE 21 MG/24 HOURS TOPICAL PATCH TD SCH (10:03)
[2020-06-01] MEDS: METHYL SALICYLATE/MENTHOL OINT 30 GM TUBE TP SCH ×2 (10:04→21:27)
[2020-06-01] MEDS: METHOCARBAMOL 500 MG TABLET PO SCH (10:04)
[2020-06-01] MEDS: ACETAMINOPHEN 325 MG TABLET (FP) PO PRN ×2 (10:04→14:16)
[2020-06-01] MEDS: METHOCARBAMOL 750 MG TABLET PO SCH ×4 (11:25→21:10)
[2020-06-01] MEDS: hydrOXYzine PAMOATE 25 MG CAPSULE (FP) PO PRN ×2 (14:16→21:08)
[2020-06-01] MEDS: THIAMINE HCL 100 MG TABLET (FP) PO SCH (21:08)
[2020-06-01] MEDS: QUEtiapine FUMARATE 300 MG TABLET PO SCH (21:08)
[2020-06-01] MEDS: MELATONIN 5 MG TABLETS PO SCH (21:08)
[2020-06-01] MEDS: LIDOCAINE 5% TOPICAL PATCH TP SCH (21:27)
[2020-06-01] MEDS: LIDOCAINE PATCH REMOVAL MC SCH (21:45)
[2020-06-02] MEDS ORDERED: PT OWN MED DRAWER 7, Y5N ONE ×4 (08:28→21:10)
[2020-06-02] MEDS: LISINOPRIL 10 MG TABLET PO SCH (09:36)
[2020-06-02] MEDS: LIDOCAINE 5% TOPICAL PATCH TP SCH (09:36)
[2020-06-02] MEDS: VENLAFAXINE HCL 75 MG E.R. CAPSULES PO SCH (09:36)
[2020-06-02] MEDS: METHOCARBAMOL 750 MG TABLET PO SCH ×4 (09:36→21:10)
[2020-06-02] MEDS: EMTRICITAB/RILPIVIRI/TENOF ALA (ODEFSEY) TABLET PO SCH (09:36)
[2020-06-02] MEDS: METHYL SALICYLATE/MENTHOL OINT 30 GM TUBE TP SCH ×2 (09:37→21:10)
[2020-06-02] MEDS: NICOTINE 21 MG/24 HOURS TOPICAL PATCH TD SCH (09:37)
[2020-06-02] MEDS: PRENATAL VITAMINS W/ FOLIC ACID TABLET (FP) PO SCH (09:37)
[2020-06-02] MEDS: hydrOXYzine PAMOATE 25 MG CAPSULE (FP) PO PRN ×2 (09:39→21:11)
[2020-06-02] MEDS: RIVAROXABAN 10 MG TABLET PO SCH (11:25)
[2020-06-02] MEDS ORDERED: MASKS NR ONE (12:21)
[2020-06-02] MEDS: LIDOCAINE PATCH REMOVAL MC SCH (21:10)
[2020-06-02] MEDS: QUEtiapine FUMARATE 300 MG TABLET PO SCH (21:10)
[2020-06-02] MEDS: THIAMINE HCL 100 MG TABLET (FP) PO SCH (21:11)
[2020-06-02] MEDS: MELATONIN 5 MG TABLETS PO SCH (21:11)
[2020-06-03] MEDS ORDERED: PT OWN MED DRAWER 7, Y5N ONE ×3 (09:07→16:46)
[2020-06-03] MEDS: PRENATAL VITAMINS W/ FOLIC ACID TABLET (FP) PO SCH (09:37)
[2020-06-03] MEDS: METHOCARBAMOL 750 MG TABLET PO SCH ×4 (09:38→21:10)
[2020-06-03] MEDS: LISINOPRIL 10 MG TABLET PO SCH (09:38)
[2020-06-03] MEDS: METHYL SALICYLATE/MENTHOL OINT 30 GM TUBE TP SCH ×2 (09:38→21:10)
[2020-06-03] MEDS: VENLAFAXINE HCL 75 MG E.R. CAPSULES PO SCH (09:38)
[2020-06-03] MEDS: LIDOCAINE 5% TOPICAL PATCH TP SCH (09:39)
[2020-06-03] MEDS: EMTRICITAB/RILPIVIRI/TENOF ALA (ODEFSEY) TABLET PO SCH (09:40)
[2020-06-03] MEDS: NICOTINE 21 MG/24 HOURS TOPICAL PATCH TD SCH (09:40)
[2020-06-03] MEDS: RIVAROXABAN 10 MG TABLET PO SCH (11:14)
[2020-06-03] MEDS: THIAMINE HCL 100 MG TABLET (FP) PO SCH (21:09)
[2020-06-03] MEDS: MELATONIN 5 MG TABLETS PO SCH (21:09)
[2020-06-03] MEDS: hydrOXYzine PAMOATE 25 MG CAPSULE (FP) PO PRN (21:10)
[2020-06-03] MEDS: LIDOCAINE PATCH REMOVAL MC SCH (21:10)
[2020-06-03] MEDS: QUEtiapine FUMARATE 300 MG TABLET PO SCH (21:10)
[2020-06-04] MEDS ORDERED: PT OWN MED DRAWER 7, Y5N ONE ×2 (09:17→16:39)
[2020-06-04] MEDS: LISINOPRIL 10 MG TABLET PO SCH (09:28)
[2020-06-04] MEDS: LIDOCAINE 5% TOPICAL PATCH TP SCH (09:28)
[2020-06-04] MEDS: PRENATAL VITAMINS W/ FOLIC ACID TABLET (FP) PO SCH (09:28)
[2020-06-04] MEDS: VENLAFAXINE HCL 75 MG E.R. CAPSULES PO SCH (09:29)
[2020-06-04] MEDS: RIVAROXABAN 10 MG TABLET PO SCH (09:29)
[2020-06-04] MEDS: EMTRICITAB/RILPIVIRI/TENOF ALA (ODEFSEY) TABLET PO SCH (09:29)
[2020-06-04] MEDS: METHYL SALICYLATE/MENTHOL OINT 30 GM TUBE TP SCH ×2 (09:30→21:22)
[2020-06-04] MEDS: METHOCARBAMOL 750 MG TABLET PO SCH ×4 (09:30→21:22)
[2020-06-04] MEDS: ACETAMINOPHEN 325 MG TABLET (FP) PO PRN (09:30)
[2020-06-04] MEDS: NICOTINE 21 MG/24 HOURS TOPICAL PATCH TD SCH (09:30)
[2020-06-04] MEDS: MELATONIN 5 MG TABLETS PO SCH (21:22)
[2020-06-04] MEDS: QUEtiapine FUMARATE 300 MG TABLET PO SCH (21:22)
[2020-06-04] MEDS: THIAMINE HCL 100 MG TABLET (FP) PO SCH (21:22)
[2020-06-04] MEDS: LIDOCAINE PATCH REMOVAL MC SCH (21:22)
[2020-06-04] MEDS: hydrOXYzine PAMOATE 25 MG CAPSULE (FP) PO PRN (21:23)
[2020-06-05] MEDS ORDERED: PT OWN MED DRAWER 7, Y5N ONE ×3 (08:57→17:34)
[2020-06-05] MEDS: METHYL SALICYLATE/MENTHOL OINT 30 GM TUBE TP SCH ×2 (10:16→21:12)
[2020-06-05] MEDS: EMTRICITAB/RILPIVIRI/TENOF ALA (ODEFSEY) TABLET PO SCH (10:17)
[2020-06-05] MEDS: PRENATAL VITAMINS W/ FOLIC ACID TABLET (FP) PO SCH (10:17)
[2020-06-05] MEDS: NICOTINE 21 MG/24 HOURS TOPICAL PATCH TD SCH (10:17)
[2020-06-05] MEDS: VENLAFAXINE HCL 75 MG E.R. CAPSULES PO SCH (10:17)
[2020-06-05] MEDS: METHOCARBAMOL 750 MG TABLET PO SCH ×4 (10:17→21:11)
[2020-06-05] MEDS: LIDOCAINE 5% TOPICAL PATCH TP SCH (10:17)
[2020-06-05] MEDS: RIVAROXABAN 10 MG TABLET PO SCH (10:18)
[2020-06-05] MEDS: ACETAMINOPHEN 325 MG TABLET (FP) PO PRN (10:19)
[2020-06-05] MEDS: LISINOPRIL 10 MG TABLET PO SCH (10:20)
[2020-06-05] MEDS: MELATONIN 5 MG TABLETS PO SCH (21:11)
[2020-06-05] MEDS: THIAMINE HCL 100 MG TABLET (FP) PO SCH (21:11)
[2020-06-05] MEDS: QUEtiapine FUMARATE 300 MG TABLET PO SCH (21:11)
[2020-06-05] MEDS: hydrOXYzine PAMOATE 25 MG CAPSULE (FP) PO PRN (21:11)
[2020-06-05] MEDS: LIDOCAINE PATCH REMOVAL MC SCH (21:12)
[2020-06-06] MEDS: PRENATAL VITAMINS W/ FOLIC ACID TABLET (FP) PO SCH (10:09)
[2020-06-06] MEDS: METHOCARBAMOL 750 MG TABLET PO SCH ×4 (10:09→21:21)
[2020-06-06] MEDS: VENLAFAXINE HCL 75 MG E.R. CAPSULES PO SCH (10:09)
[2020-06-06] MEDS: LISINOPRIL 10 MG TABLET PO SCH (10:09)
[2020-06-06] MEDS: hydrOXYzine PAMOATE 25 MG CAPSULE (FP) PO PRN ×2 (10:09→21:22)
[2020-06-06] MEDS: NICOTINE 21 MG/24 HOURS TOPICAL PATCH TD SCH (10:10)
[2020-06-06] MEDS: LIDOCAINE 5% TOPICAL PATCH TP SCH (10:10)
[2020-06-06] MEDS: METHYL SALICYLATE/MENTHOL OINT 30 GM TUBE TP SCH ×2 (10:10→21:22)
[2020-06-06] MEDS: EMTRICITAB/RILPIVIRI/TENOF ALA (ODEFSEY) TABLET PO SCH (10:10)
[2020-06-06] MEDS: RIVAROXABAN 10 MG TABLET PO SCH (10:11)
[2020-06-06] MEDS ORDERED: PT OWN MED DRAWER 7, Y5N ONE ×2 (16:45→21:24)
[2020-06-06] MEDS: MELATONIN 5 MG TABLETS PO SCH (21:21)
[2020-06-06] MEDS: QUEtiapine FUMARATE 300 MG TABLET PO SCH (21:21)
[2020-06-06] MEDS: THIAMINE HCL 100 MG TABLET (FP) PO SCH (21:21)
[2020-06-06] MEDS: LIDOCAINE PATCH REMOVAL MC SCH (21:22)
[2020-06-07] MEDS ORDERED: PT OWN MED DRAWER 7, Y5N ONE ×3 (08:44→13:36)
[2020-06-07] MEDS: LISINOPRIL 10 MG TABLET PO SCH (09:58)
[2020-06-07] MEDS: LIDOCAINE 5% TOPICAL PATCH TP SCH (09:58)
[2020-06-07] MEDS: METHOCARBAMOL 750 MG TABLET PO SCH ×4 (09:58→21:28)
[2020-06-07] MEDS: PRENATAL VITAMINS W/ FOLIC ACID TABLET (FP) PO SCH (09:58)
[2020-06-07] MEDS: RIVAROXABAN 10 MG TABLET PO SCH (09:59)
[2020-06-07] MEDS: METHYL SALICYLATE/MENTHOL OINT 30 GM TUBE TP SCH ×2 (09:59→21:29)
[2020-06-07] MEDS: VENLAFAXINE HCL 75 MG E.R. CAPSULES PO SCH (09:59)
[2020-06-07] MEDS: NICOTINE 21 MG/24 HOURS TOPICAL PATCH TD SCH (09:59)
[2020-06-07] MEDS: hydrOXYzine PAMOATE 25 MG CAPSULE (FP) PO PRN ×2 (10:01→21:29)
[2020-06-07] MEDS: EMTRICITAB/RILPIVIRI/TENOF ALA (ODEFSEY) TABLET PO SCH (10:01)
[2020-06-07] MEDS: QUEtiapine FUMARATE 300 MG TABLET PO SCH (21:28)
[2020-06-07] MEDS: MELATONIN 5 MG TABLETS PO SCH (21:28)
[2020-06-07] MEDS: THIAMINE HCL 100 MG TABLET (FP) PO SCH (21:28)
[2020-06-07] MEDS: LIDOCAINE PATCH REMOVAL MC SCH (21:29)
[2020-06-08] MEDS: METHOCARBAMOL 750 MG TABLET PO SCH ×4 (09:20→21:17)
[2020-06-08] MEDS: METHYL SALICYLATE/MENTHOL OINT 30 GM TUBE TP SCH ×2 (09:20→21:19)
[2020-06-08] MEDS: EMTRICITAB/RILPIVIRI/TENOF ALA (ODEFSEY) TABLET PO SCH (09:21)
[2020-06-08] MEDS: LISINOPRIL 10 MG TABLET PO SCH (09:21)
[2020-06-08] MEDS: PRENATAL VITAMINS W/ FOLIC ACID TABLET (FP) PO SCH (09:21)
[2020-06-08] MEDS: VENLAFAXINE HCL 75 MG E.R. CAPSULES PO SCH (09:21)
[2020-06-08] MEDS: NICOTINE 21 MG/24 HOURS TOPICAL PATCH TD SCH (09:21)
[2020-06-08] MEDS: LIDOCAINE 5% TOPICAL PATCH TP SCH (09:21)
[2020-06-08] MEDS: RIVAROXABAN 10 MG TABLET PO SCH (09:21)
[2020-06-08] MEDS: ACETAMINOPHEN 325 MG TABLET (FP) PO PRN ×2 (11:54→21:18)
[2020-06-08] MEDS: MELATONIN 5 MG TABLETS PO SCH (21:17)
[2020-06-08] MEDS: THIAMINE HCL 100 MG TABLET (FP) PO SCH (21:17)
[2020-06-08] MEDS: QUEtiapine FUMARATE 300 MG TABLET PO SCH (21:17)
[2020-06-08] MEDS: LIDOCAINE PATCH REMOVAL MC SCH (21:19)
[2020-06-09] MEDS ORDERED: PT OWN MED DRAWER 7, Y5N ONE (08:59)
[2020-06-09] MEDS: LISINOPRIL 10 MG TABLET PO SCH (09:21)
[2020-06-09] MEDS: RIVAROXABAN 10 MG TABLET PO SCH (09:21)
[2020-06-09] MEDS: METHOCARBAMOL 750 MG TABLET PO SCH ×4 (09:21→21:03)
[2020-06-09] MEDS: PRENATAL VITAMINS W/ FOLIC ACID TABLET (FP) PO SCH (09:21)
[2020-06-09] MEDS: VENLAFAXINE HCL 75 MG E.R. CAPSULES PO SCH (09:22)
[2020-06-09] MEDS: NICOTINE 21 MG/24 HOURS TOPICAL PATCH TD SCH (09:22)
[2020-06-09] MEDS: LIDOCAINE 5% TOPICAL PATCH TP SCH (09:22)
[2020-06-09] MEDS: EMTRICITAB/RILPIVIRI/TENOF ALA (ODEFSEY) TABLET PO SCH (09:22)
[2020-06-09] MEDS: METHYL SALICYLATE/MENTHOL OINT 30 GM TUBE TP SCH ×2 (09:23→21:05)
[2020-06-09] MEDS: QUEtiapine FUMARATE 300 MG TABLET PO SCH (21:03)
[2020-06-09] MEDS: MELATONIN 5 MG TABLETS PO SCH (21:04)
[2020-06-09] MEDS: LIDOCAINE PATCH REMOVAL MC SCH (21:04)
[2020-06-09] MEDS: THIAMINE HCL 100 MG TABLET (FP) PO SCH (21:04)
[2020-06-09] MEDS: hydrOXYzine PAMOATE 25 MG CAPSULE (FP) PO PRN (21:06)
[2020-06-10] MEDS: EMTRICITAB/RILPIVIRI/TENOF ALA (ODEFSEY) TABLET PO SCH (09:15)
[2020-06-10] MEDS: RIVAROXABAN 10 MG TABLET PO SCH (09:15)
[2020-06-10] MEDS: LISINOPRIL 10 MG TABLET PO SCH (09:15)
[2020-06-10] MEDS: METHOCARBAMOL 750 MG TABLET PO SCH ×4 (09:16→21:25)
[2020-06-10] MEDS: METHYL SALICYLATE/MENTHOL OINT 30 GM TUBE TP SCH ×2 (09:16→21:26)
[2020-06-10] MEDS: VENLAFAXINE HCL 75 MG E.R. CAPSULES PO SCH (09:16)
[2020-06-10] MEDS: NICOTINE 21 MG/24 HOURS TOPICAL PATCH TD SCH (09:17)
[2020-06-10] MEDS: LIDOCAINE 5% TOPICAL PATCH TP SCH (09:17)
[2020-06-10] MEDS: PRENATAL VITAMINS W/ FOLIC ACID TABLET (FP) PO SCH (09:17)
[2020-06-10] MEDS: hydrOXYzine PAMOATE 25 MG CAPSULE (FP) PO PRN ×2 (13:47→21:26)
[2020-06-10] MEDS: MELATONIN 5 MG TABLETS PO SCH (21:24)
[2020-06-10] MEDS: THIAMINE HCL 100 MG TABLET (FP) PO SCH (21:24)
[2020-06-10] MEDS: QUEtiapine FUMARATE 300 MG TABLET PO SCH (21:25)
[2020-06-10] MEDS: LIDOCAINE PATCH REMOVAL MC SCH (21:26)
[2020-06-11] MEDS ORDERED: PT OWN MED DRAWER 7, Y5N ONE (08:58)
[2020-06-11] MEDS: RIVAROXABAN 10 MG TABLET PO SCH (09:36)
[2020-06-11] MEDS: LISINOPRIL 10 MG TABLET PO SCH (09:36)
[2020-06-11] MEDS: METHOCARBAMOL 750 MG TABLET PO SCH ×4 (09:36→21:20)
[2020-06-11] MEDS: PRENATAL VITAMINS W/ FOLIC ACID TABLET (FP) PO SCH (09:37)
[2020-06-11] MEDS: EMTRICITAB/RILPIVIRI/TENOF ALA (ODEFSEY) TABLET PO SCH (09:37)
[2020-06-11] MEDS: NICOTINE 21 MG/24 HOURS TOPICAL PATCH TD SCH (09:37)
[2020-06-11] MEDS: ACETAMINOPHEN 325 MG TABLET (FP) PO PRN (09:38)
[2020-06-11] MEDS: LIDOCAINE 5% TOPICAL PATCH TP SCH (09:38)
[2020-06-11] MEDS: VENLAFAXINE HCL 75 MG E.R. CAPSULES PO SCH (09:38)
[2020-06-11] MEDS: METHYL SALICYLATE/MENTHOL OINT 30 GM TUBE TP SCH ×2 (09:38→21:21)
[2020-06-11] MEDS: MELATONIN 5 MG TABLETS PO SCH (21:20)
[2020-06-11] MEDS: THIAMINE HCL 100 MG TABLET (FP) PO SCH (21:20)
[2020-06-11] MEDS: QUEtiapine FUMARATE 300 MG TABLET PO SCH (21:20)
[2020-06-11] MEDS: hydrOXYzine PAMOATE 25 MG CAPSULE (FP) PO PRN (21:20)
[2020-06-11] MEDS: LIDOCAINE PATCH REMOVAL MC SCH (21:21)
[2020-06-12 06:46] VITALS: TEMP 97.3
[2020-06-12] MEDS ORDERED: PT OWN MED DRAWER 7, Y5N ONE ×2 (08:28→09:00)
[2020-06-12] MEDS: METHYL SALICYLATE/MENTHOL OINT 30 GM TUBE TP SCH (09:01)
[2020-06-12] MEDS: NICOTINE 21 MG/24 HOURS TOPICAL PATCH TD SCH (09:02)
[2020-06-12] MEDS: LIDOCAINE 5% TOPICAL PATCH TP SCH (09:02)
[2020-06-12] MEDS: VENLAFAXINE HCL 75 MG E.R. CAPSULES PO SCH (09:02)
[2020-06-12] MEDS: EMTRICITAB/RILPIVIRI/TENOF ALA (ODEFSEY) TABLET PO SCH (09:02)
[2020-06-12] MEDS: PRENATAL VITAMINS W/ FOLIC ACID TABLET (FP) PO SCH (09:03)
[2020-06-12] MEDS: RIVAROXABAN 10 MG TABLET PO SCH (09:03)
[2020-06-12] MEDS: hydrOXYzine PAMOATE 25 MG CAPSULE (FP) PO PRN (09:03)
[2020-06-12] MEDS: LISINOPRIL 10 MG TABLET PO SCH (09:03)
[2020-06-12] MEDS: METHOCARBAMOL 750 MG TABLET PO SCH (09:03)
[2020-06-12 09:27] VITALS: BP 107/73; PULSE 98
== END 2020-06-12 09:05 | disposition home or self-care (01) | DRG 772 ==
LOC: YASAS 11:03 → Y3W 11:04 → Y3E 05-29 10:45
PROVIDERS: ADMIT Allergy & Immunology; ATTEND Allergy & Immunology
PROC: HZ42ZZZ Group Counseling for Substance Abuse Treatment, Cognitive-Behavioral (ICD-10-PCS; principal; 2020-05-24)
DX: F10.20 Alcohol dependence, uncomplicated (principal); F14.20 Cocaine dependence, uncomplicated; F12.20 Cannabis dependence, uncomplicated; F17.210 Nicotine dependence, cigarettes, uncomplicated; F19.282 Other psychoactive substance dependence with psychoactive substance-induced sleep disorder; F19.24 Other psychoactive substance dependence with psychoactive substance-induced mood disorder; F43.10 Post-traumatic stress disorder, unspecified; Z21 Asymptomatic human immunodeficiency virus [HIV] infection status; G25.81 Restless legs syndrome; I10 Essential (primary) hypertension; J45.909 Unspecified asthma, uncomplicated; M19.90 Unspecified osteoarthritis, unspecified site; M54.5 Low back pain; G89.29 Other chronic pain; Z62.810 Personal history of physical and sexual abuse in childhood; Z86.718 Personal history of other venous thrombosis and embolism; Z79.01 Long term (current) use of anticoagulants; Z86.73 Personal history of transient ischemic attack (TIA), and cerebral infarction without residual deficits; Z91.410 Personal history of adult physical and sexual abuse; Z91.011 Allergy to milk products; Z99.89 Dependence on other enabling machines and devices; Z59.0 Homelessness
CPT/HCPCS: 82962; 83036; C9803; U0003